=== PATIENT | female | born 1995 | race Caucasian/White ===

== ENCOUNTER → 2017-12-02 12:30 | Outpatient (RCR) | payer MEDICAID, SELFPAY ==
--- NOTE | 2013-08-30 15:00 | TODAY_ITS ---
To: PCP [facility] Reason for today's visit: [facility] ENR[facility] Plan: MET WITH OLIVER AND GOT HER ENROLLED IN [facility]. TALKED A LITTLE ABOUT WHATS GOING ON - SHE IS LIVING WITH HER SISTER CURRENTLY. WORKING WITH [employer] TO GET HER GED BUT MOST INTERESTED IN FINDING A JOB, LIKES MUSIC, DOESN'T ENJOYING WORKING WITH THE PUBLIC TOO MUCH, DID HAVE A JOB AT [facility] - NOT REALLY A POSSIBILITY OF GOING BACK THERE. Action Plan: Chronic Condition: Referred to:
--- NOTE | 2013-09-18 13:30 | TODAY_ITS ---
To: PCP [facility] Reason for today's visit: [facility] Plan: MET WITH OLIVER, SHE IS LIVING WITH HER SISTER AND HER SISTER'S FINANCE ON [employer]. RENT WAS DUE ON 09/02 BUT SHE DOESN'T HAVE ANY $$ OR A JOB. SHE HAS TAKEN HER GED TESTS AND PASSED 3 OUT OF 4, SHE STATES SHE IS REALLY BAD IN MATH. WE ARE GOING TO MEET ON TUESDAY TO GO OVER THE PRACTICE TEST AND SEE IF I CAN HELP HER WITH THE PROBLEMS. 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 SHE SAID I COULD CONTACT MONO TO SEE HOW I CAN HELp. I CONTACTED MONO AND SHE GOT HER PLACED AT THE [facility] MEAL SITE AND SHE IS LOOKING FOR SOMETHING MORE PERMINENT FOR HER. I SAID I WOULD FILL OUT THE [employer] APPLICATION WITH HER. Action Plan: Chronic Condition: Referred to:
--- NOTE | 2014-05-03 14:07 | TODAY_ITS ---
To: PCP Reason for today's visit: SPOKE WITH PT AT [facility] Plan: I SPOKE BREIFLY WITH PT ABOUT HOW SHE WAS DOING. STILL LOOKING FOR AN APARTMENT. i TOLD HER ABOUT ONE IN [facility]. SHE HAS AN INTERVIEW AT [facility] NEXT WEEK. SHE WILL GET IN TOUCH WITH ME SOON. Action Plan: I WILL TEXT PT TO SET UP AN APPOINTMENT. Chronic Condition: Referred to:
== END ==
LOC: COCO 08-30 15:00
PROVIDERS: PCP Nurse Practitioner Family; Visit Provider Nurse Practitioner Family
DX: 799.89 (principal)

== ENCOUNTER 2018-08-11 15:00 | Outpatient (REF) | payer MEDICAID, SELFPAY ==
[2018-08-11 19:02] LABS: Bilirubin Negative (Negative); Blood Trace-lysed (Negative); Clarity Clear; Glucose Negative (Negative); Ketones Negative (Negative); Leukocyte Esterase Small (Negative); Nitrite Negative (Negative); Specific Gravity 1.015 (1.005-1.025); Urobilinogen 0.2 EU/dL (Up TO 0.2)
[2018-08-11 19:11] LABS: Bacteria Few HPF (Negative); C & S Indicated? No/Sq. Contamination; Casts Negative LPF (Negative); Crystals Negative HPF (Negative); Epithelial Cells Moderate HPF (Negative); Mucus Trace (Negative); RBC 0-2 (0-2)
[2018-08-14 15:22] LABS: GC Result Negative
[2018-08-14 15:47] LABS: Chlamydia Result Positive
== END 2018-08-11 15:20 ==
LOC: NCHCN 15:00
PROVIDERS: PCP Nurse Practitioner Family; Visit Provider Nurse Practitioner Family
DX: N89.8 Other specified noninflammatory disorders of vagina (principal); R30.0 Dysuria; Z72.89 Other problems related to lifestyle; Z11.3 Encounter for screening for infections with a predominantly sexual mode of transmission
CPT/HCPCS: 87491; 87591; 81003; 81015; 87480; 87510; 87660

== ENCOUNTER 2018-09-04 15:23 | Outpatient (REF) | payer MEDICAID, SELFPAY ==
--- NOTE | 2018-09-04 14:45 | PAPFT_PTH ---
PATIENT: Carmel Yañez LOC: [facility] U#:[id number] AGE/SX: 22/F ROOM: RE09/04/[address]: Rhoda Lopez : 1995 BED: DIS: 09/04/2018 SPEC #: [id number] RECD: 09/04/18 18:09 STATUS: DARON REIrma #: [id number] TIANNA: 09/04/18 14:[address]: Rhoda Lopez DEPT: [facility] Cytology RECD BY: Holly Hernandes Tissues: 1 - CX/ENDOCX FOR PAP SMEARS Procedures: PAP THIN PREP/UVM Screening Comments: [id number]
[2018-09-06 15:03] LABS: Chlamydia Result Negative; GC Result Negative; Specimen Description CERVIX
== END 2018-09-04 15:43 ==
LOC: NCHCN 15:23
PROVIDERS: PCP Nurse Practitioner Family; Visit Provider Nurse Practitioner Family
DX: Z11.3 Encounter for screening for infections with a predominantly sexual mode of transmission (principal); Z72.89 Other problems related to lifestyle; Z12.4 Encounter for screening for malignant neoplasm of cervix; Z00.00 Encounter for general adult medical examination without abnormal findings
CPT/HCPCS: 87491; 87591; 88142; 87480; 87510; 87660

== ENCOUNTER 2020-07-10 17:03 | Outpatient (REF) | payer MEDICAID, SELFPAY ==
[2020-07-14 17:01] LABS: Chlamydia Result Negative (Negative); GC Result Negative (Negative)
== END 2020-07-10 17:04 | disposition home or self-care (01) ==
LOC: LBN 17:03
PROVIDERS: PCP Nurse Practitioner Family; Visit Provider Obstetrics & Gynecology Gynecology
DX: Z11.3 Encounter for screening for infections with a predominantly sexual mode of transmission (principal)
CPT/HCPCS: 87491; 87591

== ENCOUNTER 2020-12-12 18:24 | Emergency (ER) | payer MEDICAID, SELFPAY ==
[2020-12-12 18:29] VITALS: BP 119/74; PULSE 84; RESP 16; TEMP 36.3; O2SAT 97
--- NOTE | 2020-12-12 18:40 | ED.GENADUL_ITS ---
Discharge Plan Disposition Patient Disposition: HOME Condition: Stable Discharge Details Clinical Impression: Bartholin cyst Primary Care Provider: Rhoda Lopez ED Provider: Linda Alston Home Meds and New Rx's Prescriptions: New cephalexin 500 mg tablet 500 mg PO BID 7 Days Qty: 14 RF: 0 No Action Nexplanon 68 mg implant 1 implant subdermal ONCE RF: 0 ibuprofen 600 MG tablet 800 mg PO QID PRN PRNRF: 0 Discharge Instructions Instructions: Bartholin Cyst (ED), Incision and Drainage (ED) Additional Instructions: Please take the antibiotics as directed. Please follow-up with [facility] next week. You are placed on a care management list if you do not hear from anybody by Tuesday please call [facility] to follow-up. May continue to apply warm compresses. If the packing falls out before your appointment that is okay. Return to the ER for any worsening redness, worsening swelling, fever chills or any concerns. Please take Tylenol or Ibuprofen with food every 4-6 hours as needed for pain and swelling. Referrals: Shanelle Comer MD [ [facility] STAFF PHYSICIAN] - 5 days (Bartholin Cyst management) Rhoda Lopez [Primary Care Provider] - Discharge Data Discharge Date/Time-TO BE ENTERED AT DEPARTURE: 12/12/20 19:52 Medical Decision Making 1841??25-year-old female here with painful lump in the right groin progressively increasing in size over the past 4 to 5 days. She also had some nausea and vomiting today. Patient requesting female provider. I explained that we have a nurse practitioner here in the emergency department that could see her and she was appreciative of this. Care transition to ZOILA Alston with plan to complete exam and evaluation. Transition to ZOILA Alston. Please see separate document completed by ZOILA Alston from date of service. HPI General Mode of arrival: ambulatory . Date/Time Provider Initiated Documentation: 12/12/20 18:40 . Information obtained by: patient . HPI Narrative: 25-year-old female presents with chief complaint of lump. Patient notes lump in her right groin that started about 4 to 5 days ago. Initially was about a pea-sized and is grown to a gumball size. Lump is painful to the touch. Symptoms are moderate. No modifiers. She also notes some nausea and couple episodes of vomiting today. She is not sure if this is related. She denies associated fever or chills. No abdominal pain. No urinary symptoms. No abnormal discharge. Last menstrual period was 1 week ago. Related Data Home Medications Medication Instructions Recorded Confirmed etonogestrel 68 mg subdermal 1 implant SUBDERMAL ONCE 07/10/20 12/12/20 implant cephalexin 500 mg PO BID 7 Days #14 tab 12/12/20 ibuprofen 800 mg PO QID PRN PRN 12/12/20 12/12/20 Previous Rx's Medication Instructions Recorded cephalexin 500 mg PO BID 7 Days #14 tab 12/12/20 Allergies Allergy/AdvReac Type Severity Reaction Status Date / Time No Known Allergies Allergy Unverified 12/12/20 18:33 General Stated Complaint: Cellulitis JAYSON: 3 Review of Systems All systems reviewed & are unremarkable except as noted in HPI and below Constitutional Constitutional: Denies chills and Denies fever(s) Gastrointestinal Gastrointestinal: Reports as per HPI Genitourinary Genitourinary: Reports as per HPI [facility] Medical History Contraceptive management 05/01/14 Nexplanon device Depression Encounter for removal and reinsertion of Nexplanon Nexplanon in place 07/10/2020 Tobacco use Surgical History mouth surgery (~2012) pt did not specify nature of surgery. Family History Mother Mental disorder Father Mental disorder Sister Mental disorder Social History Smoking/Tobacco Use Status: Current every day Smoking risk assessment performed?: Yes Alcohol Intake: current Alcohol Intake frequency: a few times a week Drug use: Never Substance use type: does not use Do you feel safe at home: Yes Do you feel safe in your relationship?: Yes Course Vital Signs Vital signs: Vital Signs Temperature 36.3 C L 12/12/20 18:29 Pulse 84 12/12/20 18:29 Respiratory Rate 16 12/12/20 18:29 Blood Pressure 119/74 12/12/20 18:29 Pulse Oximetry 97 12/12/20 18:29 Temperature 36.3 C L 12/12/20 18:29 Temperature Source Skin 12/12/20 18:29 Pulse 84 12/12/20 18:29 Respiratory Rate 16 12/12/20 18:29 Respiratory Effort 12/12/20 18:36 Blood Pressure 119/74 12/12/20 18:29 Pulse Oximetry 97 12/12/20 18:29 Oxygen Delivery Method Room Air 12/12/20 18:29 Oxygen Flow Rate 0 12/12/20 18:29 Pain Level 9 12/12/20 18:29 Comment 12/12/20 18:29
--- NOTE | 2020-12-12 18:46 | W.ED.PROC ---
Date of service: 12/12/20 Time of Service: 18:46 Procedures Abscess I/D Site: Bartholin's Gland Side (if applicable): Right Sedation/analgesia: None Local Anesthetic: Lidocaine 1% Amount of anesthesia used (mL): 4 Technique: Incised with #11 Blade Amount of fluid expressed (mL): 10 Irrigation: No Packing used?: Plain Complications: Pain Narrative Narrative Narrative: Genitourinary exam completed at the request of ER attending Dr. Cox. Patient has a approximately 2 cm x 2 cm Bartholin cyst to her right external labia at approximately 7:00. She reports that she noticed this for 5 days ago. Has been applying warm compresses to the area with little to no relief. She has had an abscess to her buttock which was similar to this in the past. Area was prepped with Betadine and alcohol swab, anesthetized with 1% lidocaine and Novocain spray. Abscess was incised with an 11 blade. Purulent bloody drainage was stressed. Please see procedure note. Patient tolerated with some difficulty. Quarter inch plain packing was placed. Abscess was similar in size procedure patient report relief of pressure. Recommendation given to have patient follow-up with wellness within the week for further evaluation.
[2020-12-12 19:43] VITALS: BP 116/58; PULSE 90; RESP 16; TEMP 36.6; O2SAT 97
[2020-12-12] MEDS: Cephalexin 500 MG CAP PO (19:43)
--- NOTE | 2020-12-12 19:43 | W.ED.GENAD ---
Discharge Plan Disposition Patient Disposition: HOME Condition: Stable Discharge Details Clinical Impression: Bartholin cyst Primary Care Provider: Rhoda Lopez ED Provider: Linda Alston Home Meds and New Rx's Prescriptions: New cephalexin 500 mg tablet 500 mg PO BID 7 Days Qty: 14 RF: 0 No Action Nexplanon 68 mg implant 1 implant subdermal ONCE RF: 0 ibuprofen 600 MG tablet 800 mg PO QID PRN PRNRF: 0 Discharge Instructions Instructions: Bartholin Cyst (ED), Incision and Drainage (ED) Additional Instructions: Please take the antibiotics as directed. Please follow-up with [facility] next week. You are placed on a care management list if you do not hear from anybody by Tuesday please call [facility] to follow-up. May continue to apply warm compresses. If the packing falls out before your appointment that is okay. Return to the ER for any worsening redness, worsening swelling, fever chills or any concerns. Please take Tylenol or Ibuprofen with food every 4-6 hours as needed for pain and swelling. Referrals: Shanelle Comer MD [ [facility] STAFF PHYSICIAN] - 5 days (Bartholin Cyst management) Rhoda Lopez [Primary Care Provider] - Discharge Data Discharge Date/Time-TO BE ENTERED AT DEPARTURE: 12/12/20 19:52 Medical Decision Making 25-year-old female presents to the ER chief complaint of abscess to her right groin which she noticed approximately 4 to 5 days ago. Associated with some nausea and vomiting x2 today. She reports having an abscess to her buttock approximately 1 month ago. She has been applying warm compresses and doing sitz bath. She has been taking ibuprofen with little to no relief. Please see separate procedure note regarding bartholin cyst I&D. Patient instructed to follow-up with [facility] [facility] for further management of the Bartholin cyst. Instructed on home care and strict return instructions, verbalized understanding. Small piece of quarter inch plain packing was placed, patient was given cephalexin here in the department and prescription for 500 mg p.o. twice daily x7 days. This text was generated using [employer] system, please disregard any oddities of phrase or misspellings. HPI General Mode of arrival: ambulatory. Date/Time Provider Initiated Documentation: 12/12/20 18:40. Information obtained by: patient. HPI Narrative: 25-year-old female presents to the ER chief complaint of abscess to her right groin which she noticed approximately 4 to 5 days ago. Associated with some nausea and vomiting x2 today. She reports having an abscess to her buttock approximately 1 month ago. She has been applying warm compresses and doing sitz bath. She has been taking ibuprofen with little to no relief. Related Data Home Medications Medication Instructions Recorded Confirmed etonogestrel 68 mg subdermal 1 implant SUBDERMAL ONCE 07/10/20 12/12/20 implant cephalexin 500 mg PO BID 7 Days #14 tab 12/12/20 ibuprofen 800 mg PO QID PRN PRN 12/12/20 12/12/20 Previous Rx's Medication Instructions Recorded cephalexin 500 mg PO BID 7 Days #14 tab 12/12/20 Allergies Allergy/AdvReac Type Severity Reaction Status Date / Time No Known Allergies Allergy Unverified 12/12/20 18:33 General Stated Complaint: Cellulitis JAYSON: 3 Review of Systems All systems reviewed & are unremarkable except as noted in HPI and below Genitourinary Genitourinary: Reports as per HPI, Denies abnormal vaginal bleeding, Denies hematuria, Denies dysuria, Denies vaginal discharge and Reports other (Cyst/abscess to right labia) [facility] Medical History Contraceptive management 05/01/14 Nexplanon device Depression Encounter for removal and reinsertion of Nexplanon Nexplanon in place 07/10/2020 Tobacco use Surgical History mouth surgery (~2012) pt did not specify nature of surgery. Family History Mother Mental disorder Father Mental disorder Sister Mental disorder Social History Smoking/Tobacco Use Status: Current every day Smoking risk assessment performed?: Yes Alcohol Intake: current Alcohol Intake frequency: a few times a week Drug use: Never Substance use type: does not use Do you feel safe at home: Yes Do you feel safe in your relationship?: Yes Exam Narrative Exam Narrative: Constitutional: Alert and oriented x3. Appears stated age. Normal body habitus. Head: Normocephalic, no trauma. Eyes: Pupils PERRLA, Red reflex noted, EOM's intact. Eyelids symmetrical without lesions, discharge, or swelling. ENT: Bilateral TM's WNL, External ear normal to inspection, no mastoid TTP, swelling, or erythema, Nasal turbinates WNL, no nasal discharge. Normal dentition, Posterior pharynx WNL, no exudate. Chest: RRR, Normal S1, S2, distal pulses intact. Resp: Lungs clear to auscultation bilaterally, no wheezes, rales, or rhonchi. Musculoskeletal: Normal gait, 5/5 strength to all four extremities. Skin: Capillary refill less than 2 sec. Neurologic: Cranial nerves II-XII intact. Alert and oriented x 3. DTR's intact. Hematologic/Lymphatic: No ecchymosis, no lymphadenopathy. External Female Exam: erythema, externally tender and Bartholin cyst Female genitals images: 1. Approximately 2 cm x 2 cm abscess, tender to palpation central area of fluctuance noted. Presumed Bartholin cyst. Course Vital Signs Vital signs: Vital Signs Temperature 36.3 C L 12/12/20 18:29 Pulse 84 12/12/20 18:29 Respiratory Rate 16 12/12/20 18:29 Blood Pressure 119/74 12/12/20 18:29 Pulse Oximetry 97 12/12/20 18:29 Temperature 36.3 C L 12/12/20 18:29 Temperature Source Skin 12/12/20 18:29 Pulse 84 12/12/20 18:29 Respiratory Rate 16 12/12/20 18:29 Respiratory Effort 12/12/20 18:36 Blood Pressure 119/74 12/12/20 18:29 Pulse Oximetry 97 12/12/20 18:29 Oxygen Delivery Method Room Air 12/12/20 18:29 Oxygen Flow Rate 0 12/12/20 18:29 Pain Level 9 12/12/20 18:29 Comment 12/12/20 18:29
--- NOTE | 2020-12-12 23:07 | NUR.NOTE ---
referral faxed to [facility] to f/u in a week for Barthalon Cyst.Nursing Note:
== END 2020-12-12 19:52 | disposition home or self-care (01) ==
PROVIDERS: Emergency Provider Registered Nurse Emergency; PCP Nurse Practitioner Family
DX: N75.0 Cyst of Bartholin's gland (principal); R11.2 Nausea with vomiting, unspecified
CPT/HCPCS: 56420

== ENCOUNTER 2021-02-25 13:50 | Emergency (ER) | payer MEDICAID, SELFPAY ==
[2021-02-25 13:57] VITALS: BP 135/69; PULSE 88; RESP 18; TEMP 36.7; O2SAT 98
--- NOTE | 2021-02-25 15:29 | W.ED.GENAD ---
Discharge Plan Disposition Patient Disposition: HOME Condition: Stable Discharge Details Clinical Impression: Back pain Primary Care Provider: Rhoda Lopez ED Provider: Matt Dias Home Meds and New Rx's Prescriptions: Continued Nexplanon 68 mg implant 1 implant subdermal ONCE RF: 0 ibuprofen 600 MG tablet 800 mg PO QID PRN PRNRF: 0 Discharge Instructions Instructions: Back Pain (ED) Additional Instructions: Nbly-zhe-rshldoy Tylenol and/or Motrin as directed for discomfort. Gentle stretching as tolerated. Cool and/or warm compresses every 2 hours for 20 minutes. Please watch for new or worsening symptoms and return to the ER for any concerns. Lastly, if symptoms are to persist I recommend following up with your primary care provider, you may want to discuss physical therapy. Discharge Data Discharge Date/Time-TO BE ENTERED AT DEPARTURE: 02/25/21 16:21 Medical Decision Making 25-year-old female presents with right lower back discomfort of the past 24-36 hours, worse with movement, no obvious trauma but does do heavy lifting, turning, bending, etc. at work. She has taken [id number] Motrin with minimal relief. Neuro, vascular, tendon intact. No radiculopathy. Patient denies any IV drug use. She appears well, neurologically intact. She has no urinary symptoms. Will obtain urinalysis and POC . If negative will provide 60 IM Toradol negative. Urine dip revealed small blood, urinalysis negative for blood, 3-5 white cells, no culture indicated. Clinically patient does not appear to present consistent with renal stone. Will treat as musculoskeletal. 60 IM Toradol given. Standard discharge and return precautions provided. Patient has no additional questions or concerns and is comfortable discharge. This documentation was generated using [employer] system, please disregard any oddities of phrase or misspellings. Medical Records Medical records reviewed: Yes I reviewed the patient's medical records. Lab Data Lab results reviewed: Yes I reviewed the patient's lab results. Labs: Laboratory Tests Range/Units 02/25/21 15:30 Urine Color (Yellow) Yellow Urine Clarity (Clear) Clear Urine pH (5-8) 5.5 Ur Specific [place] (1.005-1.025) 1.020 Urine Protein (Negative) mg/dL Negative Urine Ketones (Negative) mg/dL Negative Urine Blood (Negative) Small H Urine Nitrite (Negative) Negative Urine Bilirubin (Negative) Negative Urine Urobilinogen (Up TO 0.2) EU/dL 0.2 Ur Leukocyte Esterase (Negative) Negative Urine RBC (0-2) HPF Negative Urine WBC (0-5) HPF 3-5 Ur Epithelial Cells (Negative) HPF Negative Urine Crystals (Negative) HPF Negative Urine Bacteria (Negative) HPF Negative Urine Casts (Negative) LPF Negative Urine Mucus (Negative) Negative Urine Other (Negative) Negative Ur Culture Indicated? No Urine Glucose (Negative) mg/dL Negative HPI General Mode of arrival: ambulatory. Date/Time Provider Initiated Documentation: 02/25/21 14:01. Limitations to Documentation: no limitations. Information obtained by: patient. HPI Narrative: This is a 25-year-old female, denies significant past medical history, presents reporting right-sided lower back pain into her buttocks that began sometime yesterday morning, worsened throughout the day, worse upon waking today. Patient states that the day before she was working, turning, lifting, bending but denies any obvious trauma. Has taken deup-ezm-bemidek ibuprofen with minimal relief. Denies any fever, abdominal pain, nausea, vomiting, IV drug use, dysuria, hematuria, diarrhea or constipation. Denies any numbness, tingling, weakness or radiation of pain down her leg. Patient works on Tuesday and wonders if she will feel well enough to work. Related Data Home Medications Medication Instructions Recorded Confirmed etonogestrel 68 mg subdermal 1 implant SUBDERMAL ONCE 07/10/20 02/25/21 implant ibuprofen 800 mg PO QID PRN PRN 12/12/20 02/25/21 Allergies Allergy/AdvReac Type Severity Reaction Status Date / Time No Known Allergies Allergy Unverified 02/25/21 14:00 General Stated Complaint: Nk/Back Pain JAYSON: 3 Review of Systems Constitutional Constitutional: Denies fever(s) and Denies weakness Gastrointestinal Gastrointestinal: Denies abdominal pain, Denies nausea and Denies vomiting Genitourinary Genitourinary: Denies abnormal vaginal bleeding, Denies hematuria, Denies dysuria and Denies vaginal discharge Musculoskeletal Musculoskeletal: Reports back pain, Denies numbness, Reports stiffness and Denies tingling Integumentary/Breasts Skin/Breast: Denies rash Neurologic Neurologic: Denies numbness, Denies tingling and Denies weakness [facility] Active Problem List Bartholin cyst (Acute) Back pain (Acute) Nexplanon in place (Acute) Encounter for removal and reinsertion of Nexplanon (Acute) Routine screening for STI (sexually transmitted infection) (Acute) Medical History Contraceptive management 05/01/14 Nexplanon device Depression Tobacco use Surgical History mouth surgery (~2012) pt did not specify nature of surgery. Family History Mother Mental disorder Father Mental disorder Sister Mental disorder Social History Smoking/Tobacco Use Status: Current every day Smoking risk assessment performed?: Yes Alcohol Intake: current Alcohol Intake frequency: 3 or more drinks per day Drug use: Daily Substance use type: marijuana Do you feel safe at home: Yes Do you feel safe in your relationship?: Yes Exam Const General: cooperative, healthy appearing, comfortable and no acute distress Orientation: alert and awake HENMT Head: normal to inspection, normocephalic and atraumatic Eyes Conjunctivae: conjunctivae normal Neck Neck: normal visual inspection, trachea midline and supple Resp Effort & Inspection: normal respiratory effort and able to speak in complete sentences Auscultation: clear to auscultation bilaterally Cardio Rate: regular rate Rhythm: regular rhythm GI Palpation: soft, not firm, no guarding, no pulsatile masses and nontender Back/Spine/Pelvis Back: no CVA tenderness and back tenderness Other: Diffuse mild lower right lumbar discomfort, worse over the SI region. No midline or bony point tenderness. No erythema, warmth or spasm. Left side negative straight leg raise. Right side positive at 10 degrees Skin General skin exam: no rashes or lesions noted Neuro General: patient alert, patient awake, moves all extremities and no focal motor deficits Cognition: normal cognition Speech: speech normal Gait: normal gait Motor: muscle tone normal throughout Sensory Exam: no sensory deficits noted Extrem General: normal to inspection, full ROM and capillary refill normal Psych Appearance: grossly normal Mental Status: mental status grossly normal Course Vital Signs Vital signs: Vital Signs Temperature 36.7 C 02/25/21 13:57 Pulse 88 02/25/21 13:57 Respiratory Rate 18 02/25/21 13:57 Blood Pressure 135/69 02/25/21 13:57 Pulse Oximetry 98 02/25/21 13:57 Temperature 36.7 C 02/25/21 13:57 Pulse 88 02/25/21 13:57 Respiratory Rate 18 02/25/21 13:57 Respiratory Effort Non-Labored 02/25/21 14:00 Blood Pressure 135/69 02/25/21 13:57 Pulse Oximetry 98 02/25/21 13:57 Pain Level 9 02/25/21 14:00 PAWSS Have you Been Recently Intoxicated or Drunk Within the Last 30 days?: Yes Have you Ever Experienced Previous Episodes of Alcohol Withdrawal?: No Have you ever Experienced Withdrawal Seizures?: No Have you ever Experienced Delirium Tremens(DT)s?: No Have you ever undergone Alcohol Rehabilitation Treatment (i.e, inpt ot outpatient treatment programs)?: Yes Have you ever Experienced Blackouts?: No Have you ever Combined Alcohol with other Downers within the last 90 days?: No Have you ever Combined Alcohol with any other Substance of Abuse during the last 90 days?: Yes Positive Blood Alcohol level on Presentation? [PCS.BAL]: No Evidence of Increased Autonomic Activity (i.e. HR>120, tremor, sweating, agitation, nausea)?: No Result: 4
[2021-02-25 15:51] LABS: Bilirubin Negative (Negative); Blood Small (Negative); Clarity Clear (Clear); Glucose Negative (Negative); Ketones Negative (Negative); Leukocyte Esterase Negative (Negative); Nitrite Negative (Negative); Urobilinogen 0.2 EU/dL (Up TO 0.2); pH 5.5 (5-8)
[2021-02-25 16:14] LABS: Bacteria Negative HPF (Negative); C & S Indicated? No; Casts Negative LPF (Negative); Crystals Negative HPF (Negative); Epithelial Cells Negative HPF (Negative); Mucus Negative (Negative); Other Cells Negative (Negative); RBC Negative HPF (0-2)
[2021-02-25] MEDS: Ketorolac 60 MG/2 ML VIAL IM (16:18)
== END 2021-02-25 16:21 | disposition home or self-care (01) ==
PROVIDERS: Emergency Provider Physician Assistant; PCP Nurse Practitioner Family
DX: M54.50 Low back pain, unspecified (principal)
CPT/HCPCS: 81025; 96372; 99284; 81003; 81015; 99283; J1885

== ENCOUNTER 2021-03-01 19:11 | Emergency (ER) | payer MEDICAID, SELFPAY ==
[2021-03-01 19:15] VITALS: BP 130/81; PULSE 93; RESP 18; TEMP 36.5; O2SAT 96
[2021-03-01] MEDS: Lidocaine 5% Patch 2 PATCH TP (20:41)
--- NOTE | 2021-03-01 20:44 | ED.GENADUL_ITS ---
Discharge Plan Disposition Patient Disposition: HOME Condition: Good Discharge Details Clinical Impression: Lumbar strain Primary Care Provider: Rhoda Lopez ED Provider: Holly Amos Home Meds and New Rx's Prescriptions: New lidocaine [Lidoderm] 5 % adhesive patch,medicated 1 patch topical DAILY Qty: 15 RF: 0 Continued Nexplanon 68 mg implant 1 implant subdermal ONCE RF: 0 ibuprofen 600 MG tablet 800 mg PO QID PRN PRNRF: 0 Discharge Instructions Instructions: Low Back Strain (ED) Additional Instructions: Lidoderm patches, 1-2 patches 12 hours on, 12 hours off Take ibuprofen 600 mg every 8 hours as needed Take Tylenol 650 mg every 4-6 hours for the next 5 days No heavy lifting or repetitive motion Follow-up with your primary care physician Stand Alone Forms: Work Release Referrals: Rhoda Lopez [Primary Care Provider] - Medical Decision Making Denies chance of , nonfocal neurological exam Bree steady gait, no evidence of cauda equina syndrome No evidence of lumbar radiculopathy, suspect piriformis No abdominal tenderness, no CVA tenderness, denies any dysuria or frequency Unfortunately secondary to the amount of alcohol patient consumes on a daily basis, between 8-12 hard cheeses, I do not feel comfortable prescribing patient for muscle relaxants I have given her Lidoderm patches and she will take Motrin and Tylenol for the next several days She is her primary care physician, I did discuss need for decreasing her alcohol consumption and risk of harm associated with drinking this amount She is alert, oriented, of decisional capacity, she is very pleasant in demeanor Medical Records Medical records reviewed: Yes I reviewed the patient's medical records. Lab Data Lab results reviewed: Yes I reviewed the patient's lab results. HPI General Mode of arrival: ambulatory . Date/Time Provider Initiated Documentation: 03/01/21 19:14 . Limitations to Documentation: no limitations . Information obtained by: patient . HPI Narrative: This 25-year-old female presents with lumbar pain. She states that a week ago at work she was lifting some heavy tables and thinks this precipitated her event. She denies any strength or sensation change. She denies any history of illicit drug use. She denies any radiation of pain down her extremities. Denies chance of . Denies any fever or chills. Describes the pain as sharp and positional. Worsened with flexion and extension she denies any changes in bowel or bladder. Related Data Home Medications Medication Instructions Recorded Confirmed etonogestrel 68 mg subdermal 1 implant SUBDERMAL ONCE 07/10/20 03/01/21 implant ibuprofen 800 mg PO QID PRN PRN 12/12/20 03/01/21 lidocaine [Lidoderm] 1 patch TOPICAL DAILY #15 ea 03/01/21 Previous Rx's Medication Instructions Recorded lidocaine [Lidoderm] 1 patch TOPICAL DAILY #15 ea 03/01/21 Allergies Allergy/AdvReac Type Severity Reaction Status Date / Time No Known Allergies Allergy Unverified 03/01/21 19:19 General Stated Complaint: Nk/Back Pain JAYSON: 4 Review of Systems All systems reviewed & are unremarkable except as noted in HPI and below PFSH Active Problem List Bartholin cyst (Acute) Back pain (Acute) Nexplanon in place (Acute) Encounter for removal and reinsertion of Nexplanon (Acute) Routine screening for STI (sexually transmitted infection) (Acute) Medical History Contraceptive management 05/01/14 Nexplanon device Depression Tobacco use Surgical History mouth surgery (~2012) pt did not specify nature of surgery. Family History Mother Mental disorder Father Mental disorder Sister Mental disorder Social History Smoking/Tobacco Use Status: Current every day Tobacco Type: cigarettes Smoking risk assessment performed?: Yes Alcohol Intake: current Alcohol Intake frequency: 3 or more drinks per day Drug use: Daily Substance use type: marijuana Do you feel safe at home: Yes Do you feel safe in your relationship?: Yes Exam Const General: cooperative, comfortable, no acute distress and well developed Eyes Pupils: PERRL Resp Effort & Inspection: normal respiratory effort Auscultation: clear to auscultation bilaterally Cardio Rate: regular rate GI Other: non-tender abdominal exam, no abdominal bruit or pulsatile mass, no CVA tenderness Back/Spine/Pelvis Back/spine/pelvis image: 1. tenderness to palpation no midline tenderness Skin General skin exam: no rashes or lesions noted Neuro General: patient alert and patient oriented x3 Extrem Other: Distal pulses intact Course Vital Signs Vital signs: Vital Signs Temperature 36.5 C 03/01/21 19:15 Pulse 93 H 03/01/21 19:15 Respiratory Rate 18 03/01/21 19:15 Blood Pressure 130/81 03/01/21 19:15 Pulse Oximetry 96 03/01/21 19:15 Temperature 36.5 C 03/01/21 19:15 Temperature Source Skin 03/01/21 19:15 Pulse 93 H 03/01/21 19:15 Respiratory Rate 18 03/01/21 19:15 Respiratory Effort Non-Labored 03/01/21 19:19 Blood Pressure 130/81 03/01/21 19:15 Pulse Oximetry 96 03/01/21 19:15 Pain Level 9 03/01/21 19:19 PAWSS Have you Been Recently Intoxicated or Drunk Within the Last 30 days?: Yes Have you Ever Experienced Previous Episodes of Alcohol Withdrawal?: No Have you ever Experienced Withdrawal Seizures?: No Have you ever Experienced Delirium Tremens(DT)s?: No Have you ever undergone Alcohol Rehabilitation Treatment (i.e, inpt ot outpatient treatment programs)?: No Have you ever Experienced Blackouts?: No Have you ever Combined Alcohol with other Downers within the last 90 days?: No Have you ever Combined Alcohol with any other Substance of Abuse during the last 90 days?: No Positive Blood Alcohol level on Presentation? [PCS.BAL]: No Evidence of Increased Autonomic Activity (i.e. HR>120, tremor, sweating, agitation, nausea)?: No Result: 1
== END 2021-03-01 20:44 | disposition home or self-care (01) ==
PROVIDERS: Emergency Provider Physician Assistant; PCP Nurse Practitioner Family
DX: S39.012A Strain of muscle, fascia and tendon of lower back, initial encounter (principal); X50.0XXA Overexertion from strenuous movement or load, initial encounter; Y99.0 Civilian activity done for income or pay
CPT/HCPCS: 99283

== ENCOUNTER 2021-10-29 16:23 | Emergency (ER) | payer MEDICAID, SELFPAY ==
[2021-10-29 16:27] VITALS: BP 122/79; PULSE 114; RESP 20; TEMP 37.3; O2SAT 96
--- NOTE | 2021-10-29 17:08 | ED.GENADUL_ITS ---
Discharge Plan Disposition Patient Disposition: HOME Condition: Stable Discharge Details Clinical Impression: Back pain Primary Care Provider: Rhoda Lopez ED Provider: Matt Dias Home Meds and New Rx's Prescriptions: New lidocaine [Lidoderm] 5 % adhesive patch,medicated 1 patch topical DAILY Qty: 15 0RF Rx Instructions: leave on most painful area for up to 12 hrs naproxen [Naprosyn] 500 mg tablet 500 mg PO BID PRNQty: 20 0RF Continued Nexplanon 68 mg implant 1 implant subdermal ONCE Rx Instructions: as a single dose Discontinued lidocaine [Lidoderm] 5 % adhesive patch,medicated 1 patch topical DAILY Qty: 15 0RF Rx Instructions: leave on most painful area for up to 12 hrs ibuprofen 600 MG tablet 800 mg PO QID PRN PRN Discharge Instructions Instructions: Back Pain (ED) Additional Instructions: Naprosyn and Lidoderm patches as directed. Gentle stretching as tolerated. [employer] and/or warm compresses every 2 hours for 20 minutes. Please watch for new or worsening symptoms and return to the ER for any concerns. Please practice proper lifting and body mechanics. We discussed physical therapy but at this time you do not feel as though you will be able to attend on a regular basis, I do feel is that this would be beneficial. 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 She states that the pain is becoming more frequent and worse with movement, occasionally traveling down her right leg. She denies any trauma, fever, history of IV drug use, abdominal pain, bowel or bladder incontinence or retention, numbness, tingling, weakness. Patient reports that Lidoderm patches do tend to help but she is out of them. She has not been followed by her primary care provider. We did discuss physical therapy but she does not believe this would be beneficial or useful at this time. She states I want to be sure there is nothing more going on. We discussed that this certainly seems musculoskeletal in nature. Obtaining urinalysis and test is reasonable but I do not believe any hematologic tests will be beneficial or change her outcome. Very little yield in obtaining plain film as there has been no trauma and I do not suspect bony abnormality. Patient is agreeable with this plan Urinalysis reveals no evidence of infection. Negative nitrate, negative leuk esterase, 0-2 red and white cells. Negative Discussed urinalysis with patient. Plan is to provide 60 IM Toradol. 60 IM Toradol provided, patient reports moderate relief She remains neurologically intact. No acute distress, ambulates without difficulty. We did discuss proper body mechanics for lifting and the importance of being proactive with chronic back pain at such a young age. Standard discharge and return precautions were provided. Patient understands, is agreeable to this plan, and has no additional questions or concerns upon discharge. This documentation was generated using FONU[employer]ation system, please disregard any oddities of phrase or misspellings. Medical Records Medical records reviewed: Yes I reviewed the patient's medical records. Lab Data Lab results reviewed: Yes I reviewed the patient's lab results. Labs: Laboratory Tests Range/Units 10/29/21 17:50 Urine Color (Yellow) Yellow Urine Clarity (Clear) Clear Urine pH (5-8) 5.5 Ur Specific [place] (1.005-1.025) >= 1.030 H Urine Protein (Negative) mg/dL Negative Urine Ketones (Negative) mg/dL 15 H Urine Blood (Negative) Small H Urine Nitrite (Negative) Negative Urine Bilirubin (Negative) Negative Urine Urobilinogen (Up TO 0.2) EU/dL 0.2 Ur Leukocyte Esterase (Negative) Negative Urine RBC (0-2) HPF 0-2 Urine WBC (0-5) HPF 0-2 Ur Epithelial Cells (Negative) HPF Moderate Urine Crystals (Negative) HPF Negative Urine Bacteria (Negative) HPF Negative Urine Mucus (Negative) Heavy Ur Culture Indicated? No Urine Glucose (Negative) mg/dL Negative HPI General Mode of arrival: ambulatory . Date/Time Provider Initiated Documentation: 10/29/21 16:24 . Limitations to Documentation: no limitations . Information obtained by: patient . History of Present Illness 26 year old F presents to the emergency department with the chief complaint of low back pain, described as moderate, with intensity rated at 6. Quality is described as aching, and is localized to the back. Patient extremity (R). Patient started experiencing this year(s) (1) and it has been intermittent. Immobilization improves symptom(s), Movement worsens symptoms . Patient notes no other symptoms.. Patient did receive the following treatments prior to arrival, other (Occasionally a Lidoderm patch) Related Data Home Medications Medication Instructions Recorded Confirmed etonogestrel 68 mg subdermal 1 implant subdermal ONCE 07/10/20 10/29/21 implant (Nexplanon) lidocaine 5 % topical patch 1 patch topical DAILY #15 ea 10/29/21 (Lidoderm) naproxen 500 mg tablet (Naprosyn) 500 mg PO BID PRN #20 tabs 10/29/21 Previous Rx's Medication Instructions Recorded lidocaine 5 % topical patch 1 patch topical DAILY #15 ea 10/29/21 (Lidoderm) naproxen 500 mg tablet (Naprosyn) 500 mg PO BID PRN #20 tabs 10/29/21 Allergies Allergy/AdvReac Type Severity Reaction Status Date / Time No Known Allergies Allergy Unverified 03/01/21 19:19 General Stated Complaint: Nk/Back Pain JAYSON: 4 Review of Systems Constitutional Constitutional: Denies fever(s) and Denies weakness Cardiovascular Cardiovascular: Denies chest pain and Denies dyspnea Respiratory Respiratory: Denies dyspnea Gastrointestinal Gastrointestinal: Denies abdominal pain, Denies nausea and Denies vomiting Genitourinary Genitourinary: Denies abnormal vaginal bleeding and Denies dysuria Musculoskeletal Musculoskeletal: Reports back pain, Denies numbness, Reports stiffness and Denies tingling Integumentary/Breasts Skin/Breast: Denies rash Neurologic Neurologic: Denies numbness, Denies tingling and Denies weakness PFSH All Active Problems (Updated 10/29/21 @ 18:26 by PATITO Torres) Bartholin cyst (Acute) Back pain (Acute) Lumbar strain (Acute) Nexplanon in place (Acute) 07/10/2020 Encounter for removal and reinsertion of Nexplanon (Acute) Routine screening for STI (sexually transmitted infection) (Acute) Medical History Contraceptive management 05/01/14 Nexplanon device Depression Tobacco use Surgical History mouth surgery (~2012) pt did not specify nature of surgery. Family History Mother Mental disorder Father Mental disorder Sister Mental disorder Social History Smoking/Tobacco Use Status: Current every day Tobacco Type: cigarettes Smoking risk assessment performed?: Yes Alcohol Intake: current Alcohol Intake frequency: holidays/special occasions only Drug use: Daily Substance use type: marijuana Do you feel safe at home: Yes Do you feel safe in your relationship?: Yes Exam Const General: cooperative, healthy appearing, comfortable and no acute distress Orientation: alert and awake HENMS Head: normal to inspection, normocephalic and atraumatic Eyes Conjunctivae: conjunctivae normal Neck Neck: normal visual inspection, full ROM, trachea midline and supple Resp Effort & Inspection: normal respiratory effort and able to speak in complete sentences Auscultation: clear to auscultation bilaterally Cardio Rate: regular rate Rhythm: regular rhythm GI Palpation: soft, not firm, no guarding, no pulsatile masses and nontender Back/Spine/Pelvis Back: no CVA tenderness and back tenderness (Diffuse mild right lumbar) Skin General skin exam: no rashes or lesions noted Neuro General: patient alert, patient awake, moves all extremities and no focal motor deficits Cognition: normal cognition Speech: speech normal Gait: normal gait Motor: muscle tone normal throughout Sensory Exam: no sensory deficits noted Extrem General: normal to inspection, full ROM, capillary refill normal, no pedal edema and no calf tenderness Psych Appearance: grossly normal Mental Status: mental status grossly normal Course Vital Signs Vital signs: Vital Signs Temperature 37.3 C 10/29/21 16:27 Pulse 114 H 10/29/21 16:27 Respiratory Rate 20 10/29/21 16:27 Blood Pressure 122/79 10/29/21 16:27 Pulse Oximetry 96 10/29/21 16:27 Temperature 37.3 C 10/29/21 16:27 Temperature Source Skin 10/29/21 16:27 Pulse 114 H 10/29/21 16:27 Respiratory Rate 20 10/29/21 16:27 Respiratory Effort Non-Labored 10/29/21 16:32 Blood Pressure 122/79 10/29/21 16:27 Blood Pressure Position Sitting 10/29/21 16:27 Pulse Oximetry 96 10/29/21 16:27 Oxygen Delivery Method Room Air 10/29/21 16:27 Oxygen Flow Rate 0 10/29/21 16:27 Pain Level 9 07/28/22 16:27
--- NOTE | 2021-10-29 17:23 | PDOC.ERCMPRO ---
- If Service Date Differs Date of service: 10/29/21 Time of Service: 17:23 Care Management Progress Note [facility]SB[facility] screen positive for cannabis (6) nicotine, Anxiety (REYNA 9) Depression(PHQ 9:16). Pt states she has been in tx in the past and is currently declining any tx services.
[2021-10-29 18:07] LABS: Bilirubin Negative (Negative); Blood Small (Negative); Clarity Clear (Clear); Glucose Negative (Negative); Ketones 15 mg/dL (Negative); Leukocyte Esterase Negative (Negative); Nitrite Negative (Negative); Specific Gravity >= 1.030 (1.005-1.025); Urobilinogen 0.2 EU/dL (Up TO 0.2); pH 5.5 (5-8)
[2021-10-29 18:19] LABS: Bacteria Negative HPF (Negative); C & S Indicated? No; Crystals Negative HPF (Negative); Epithelial Cells Moderate HPF (Negative); Mucus Heavy (Negative); RBC 0-2 HPF (0-2); WBC 0-2 HPF (0-5)
[2021-10-29] MEDS: Ketorolac 60 MG/2 ML VIAL IM (18:30)
[2021-10-29 18:41] VITALS: BP 108/92; PULSE 85; RESP 17; TEMP 37.6; O2SAT 98
== END 2021-10-29 18:43 | disposition home or self-care (01) ==
PROVIDERS: Emergency Provider Physician Assistant; PCP Nurse Practitioner Family
DX: M54.50 Low back pain, unspecified (principal); F17.210 Nicotine dependence, cigarettes, uncomplicated
CPT/HCPCS: 96372; 99284; 81003; 81015; J1885

== ENCOUNTER 2021-11-08 11:36 | Emergency (ER) | payer MEDICAID, SELFPAY ==
[2021-11-08 11:41] VITALS: PULSE 83; RESP 18; TEMP 36.6; O2SAT 98
--- NOTE | 2021-11-08 12:14 | W.ED.GENAD ---
Discharge Plan Disposition Patient Disposition: HOME Discharge Details Clinical Impression: Lumbar strain, Back pain Primary Care Provider: Rhoda Lopez ED Provider: Naresh Panda Home Meds and New Rx's Prescriptions: New lidocaine 4 % adhesive patch,medicated 1 patch topical DAILY PRNQty: 10 0RF No Action Nexplanon 68 mg implant 1 implant subdermal ONCE Rx Instructions: as a single dose cyclobenzaprine 10 mg Tablet 10 mg lidocaine [Lidoderm] 5 % adhesive patch,medicated 1 patch topical DAILY Qty: 15 0RF Rx Instructions: leave on most painful area for up to 12 hrs naproxen [Naprosyn] 500 mg tablet 500 mg PO BID PRNQty: 20 0RF Discharge Instructions Additional Instructions: It is very important that you follow-up with physical therapy as instructed by your primary care provider. You may take Tylenol 650 mg every 6 hours for the pain. You may also take ibuprofen 400 mg every 8 hours for the pain. It is very important that you use lidocaine patches 12 hours a day. When the lidocaine patches are not on you may apply some warm compresses to the lower back. Do not apply any warm compresses or cool compresses when the lidocaine patches is on. Stand Alone Forms: Work Release Medical Decision Making Patient with mechanical back pain. She did ask if an MRI was indicated at this time. I do not believe that any imaging is required. I reemphasized the need for her to follow-up with physical therapy. I reemphasized the fact that she needs to be using lidocaine patches. She will be treated with dose of Toradol in the emergency department. And the lidocaine patch will be applied. HPI General Date/Time Provider Initiated Documentation: 11/08/21 12:14. HPI Narrative: 26-year-old presents to the emergency room for reevaluation of low back pain. She was seen in the emergency department on October 29 and diagnosed with a lumbar strain. She was sent home with anti-inflammatories. She follow-up with her primary care office and was placed on Flexeril. She was prescribed lidocaine patches which she stopped using in was referred to physical therapy. Unfortunately she did not go to physical therapy. She presented to the emergency room with persistent low back pain. Pain is worse with changes in position. She does not recall any trauma. No falls. No heavy lifting. She works at the [employer] and the heaviest thing she lifts over the mattress when she is putting the sheets on them. She has had no fevers no chills. No history of IVDA. No incontinence. No paresthesias. No radiation of pain down the legs. Related Data Home Medications Medication Instructions Recorded Confirmed etonogestrel 68 mg subdermal 1 implant subdermal ONCE 07/10/20 11/08/21 implant (Nexplanon) lidocaine 5 % topical patch 1 patch topical DAILY #15 ea 10/29/21 11/08/21 (Lidoderm) naproxen 500 mg tablet (Naprosyn) 500 mg PO BID PRN #20 tabs 10/29/21 11/08/21 cyclobenzaprine 10 mg tablet 10 mg 11/08/21 lidocaine 4 % topical patch 1 patch topical DAILY PRN #10 ea 11/08/21 Previous Rx's Medication Instructions Recorded lidocaine 5 % topical patch 1 patch topical DAILY #15 ea 10/29/21 (Lidoderm) naproxen 500 mg tablet (Naprosyn) 500 mg PO BID PRN #20 tabs 10/29/21 lidocaine 4 % topical patch 1 patch topical DAILY PRN #10 ea 11/08/21 Allergies Allergy/AdvReac Type Severity Reaction Status Date / Time No Known Allergies Allergy Unverified 03/01/21 19:19 General Stated Complaint: Nk/Back Pain JAYSON: 3 Review of Systems Narrative: Constitutional negative for fever chills negative for malaise and fatigue Respiratory no cough no shortness of breath. GI no abdominal pain no nausea vomiting normal MSK see HPI Skin negative Neuro see HPI Psych positive anxiety. Hematological not on blood thinner PFSH All Active Problems (Updated 11/08/21 @ 12:24 by Naresh Panda MD) Bartholin cyst (Acute) Back pain (Acute) Lumbar strain (Acute) Nexplanon in place (Acute) 07/10/2020 Encounter for removal and reinsertion of Nexplanon (Acute) Routine screening for STI (sexually transmitted infection) (Acute) Medical History Contraceptive management 05/01/14 Nexplanon device Depression Tobacco use Surgical History mouth surgery (~2012) pt did not specify nature of surgery. Family History Mother Mental disorder Father Mental disorder Sister Mental disorder Social History Smoking/Tobacco Use Status: Current every day Tobacco Type: cigarettes Smoking risk assessment performed?: Yes Alcohol Intake: current Alcohol Intake frequency: holidays/special occasions only Drug use: Daily Substance use type: marijuana Do you feel safe at home: Yes Do you feel safe in your relationship?: Yes Exam Narrative Exam Narrative: Awake alert [place] x3 calm no acute distress. The patient for the waiting room walked her to the triage room. Upon arriving to the triage room she slumped in actually somewhat jumped into the chair without any exacerbation of her back pain. Her gait was normal. PERRLA EOMI MMM Normal work of breathing Normal cap refill Spine. No midline tenderness other than some discomfort on the lower aspect 3 L4 area. SI joints normal. The skin is normal. Patient has decreased flexion of lower back secondary to the pain. Strength of lower extremities 5/5. Rectal exam deferred. Neuro grossly intact Course Vital Signs Vital signs: Vital Signs Temperature 36.6 C 11/08/21 11:41 Pulse 83 11/08/21 11:41 Respiratory Rate 18 11/08/21 11:41 Pulse Oximetry 98 11/08/21 11:41 Temperature 36.6 C 11/08/21 11:41 Temperature Source Temporal Artery Scan 11/08/21 11:41 Pulse 83 11/08/21 11:41 Respiratory Rate 18 11/08/21 11:41 Blood Pressure Position Sitting 11/08/21 11:41 Pulse Oximetry 98 11/08/21 11:41 Oxygen Delivery Method Room Air 11/08/21 11:41 Oxygen Flow Rate 0 11/08/21 11:41 Pain Level 8 11/08/21 11:41
== END 2021-11-08 12:56 | disposition home or self-care (01) ==
PROVIDERS: Emergency Provider Emergency Medicine; PCP Nurse Practitioner Family
DX: S39.012A Strain of muscle, fascia and tendon of lower back, initial encounter (principal); F17.210 Nicotine dependence, cigarettes, uncomplicated; X58.XXXA Exposure to other specified factors, initial encounter
CPT/HCPCS: 96372; 99284

== ENCOUNTER 2022-08-24 05:12 | Emergency (ER) | payer MEDICAID, SELFPAY ==
[2022-08-24 05:15] VITALS: BP 121/62; PULSE 114; RESP 22; TEMP 36.3; O2SAT 98
--- NOTE | 2022-08-24 05:21 | ED.GENADUL_ITS ---
Discharge Plan Disposition Patient Disposition: Home Condition: Good Discharge Details Chief Complaint: Sorethroat Clinical Impression: Laryngitis Primary Care Provider: Rhoda Lopez ED Provider: Noé Chandler Home Meds and New Rx's Prescriptions: No Action Nexplanon 68 mg implant 1 implant subdermal ONCE Rx Instructions: as a single dose cyclobenzaprine 10 mg Tablet 10 mg lidocaine 4 % adhesive patch,medicated 1 patch topical DAILY PRNQty: 10 0RF lidocaine [Lidoderm] 5 % adhesive patch,medicated 1 patch topical DAILY Qty: 15 0RF Rx Instructions: leave on most painful area for up to 12 hrs naproxen [Naprosyn] 500 mg tablet 500 mg PO BID PRNQty: 20 0RF Discharge Instructions Instructions: Laryngitis (ED) Additional Instructions: At this time your strep test is negative. Current physical exam findings show no other evidence of tonsillitis, mono, or other significant abnormality. I suspect your symptoms are being caused by a viral upper respiratory infection. Please take Tylenol and Motrin as needed for pain. You can take 1000 mg of Tylenol every 6 hours and 800 mg of Motrin every 6 hours as needed. If you notice any worsening of your symptoms, or any new symptoms such as new oral lesions, vomiting, diarrhea, fever, chills, shortness of breath, chest pain, numbness, weakness, or fainting , please return immediately to the emergency department for reevaluation. Please follow up with your primary care provider as soon as possible for reassessment and reevaluation. As always, it was a pleasure participating in your medical care today. Referrals: Rhoda Lopez [Primary Care Provider] - Medical Decision Making 26-year-old female presents today for evaluation of sore throat and fever. Patient states that she went to bed last night with a mild sore throat, and woke up this morning with a sore throat and fever. She states that it feels like sandpaper when she tries to swallow. She denies any vomiting or diarrhea. She denies any other sick contacts. She denies any abdominal pain. She denies any severe fatigue. She did take Tylenol prior to arrival. No other complaints at this time. No other modifying factors. Physical exam demonstrates well-appearing female, no meningeal signs. Mild cobblestoning and erythema in the posterior oropharynx. No evidence of peritonsillar abscess. No evidence of airway compromise. Symptoms appear consistent with mild laryngitis/pharyngitis. We will test for strep, give Toradol and viscous lidocaine. At this time no evidence of khrh-bacn-gor-mouth. Strep test is negative. Symptoms appear consistent with a mild viral upper respiratory infection causing her laryngitis. No current evidence of herpangina, hzlq-bdfd-lvh-mouth, or tonsillitis. Recommend continued NSAIDs at home. Discussed red flags for which to return. No signs of airway compromise whatsoever. I have extensively reviewed the treatment plan and discharge instructions with the patient and their family. I have addressed all patient concerns at this time. The patient and family was made aware of what symptoms to monitor for that would warrant a return to the emergency department. Discussed the plan with the patient and family, they demonstrate verbal understanding and agreement with our assessment and plan at this time. The documentation in this chart was dictated using [employer] dictation software. Please excuse any dictation errors. HPI General Date/Time Provider Initiated Documentation: 08/24/22 05:12 . HPI Narrative: 26-year-old female presents today for evaluation of sore throat and fever. Patient states that she went to bed last night with a mild sore throat, and woke up this morning with a sore throat and fever. She states that it feels like sandpaper when she tries to swallow. She denies any vomiting or diarrhea. She denies any other sick contacts. She denies any abdominal pain. She denies any severe fatigue. She did take Tylenol prior to arrival. No other complaints at this time. No other modifying factors. Related Data Home Medications Medication Instructions Recorded Confirmed etonogestrel 68 mg subdermal 1 implant subdermal ONCE 07/10/20 11/08/21 implant (Nexplanon) lidocaine 5 % topical patch 1 patch topical DAILY #15 ea 10/29/21 11/08/21 (Lidoderm) naproxen 500 mg tablet (Naprosyn) 500 mg PO BID PRN #20 tabs 10/29/21 11/08/21 cyclobenzaprine 10 mg tablet 10 mg 11/08/21 lidocaine 4 % topical patch 1 patch topical DAILY PRN #10 ea 11/08/21 Previous Rx's Medication Instructions Recorded lidocaine 5 % topical patch 1 patch topical DAILY #15 ea 10/29/21 (Lidoderm) naproxen 500 mg tablet (Naprosyn) 500 mg PO BID PRN #20 tabs 10/29/21 lidocaine 4 % topical patch 1 patch topical DAILY PRN #10 ea 11/08/21 Allergies Allergy/AdvReac Type Severity Reaction Status Date / Time No Known Allergies Allergy Unverified 03/01/21 19:19 General Stated Complaint: Sorethroat JAYSON: 4 Review of Systems All systems reviewed & are unremarkable except as noted in HPI and below PFSH All Active Problems (Updated 08/24/22 @ 05:34 by Noé Chandler DO) Bartholin cyst (Acute) Back pain (Acute) Lumbar strain (Acute) Laryngitis (Acute) Nexplanon in place (Acute) 07/10/2020 Encounter for removal and reinsertion of Nexplanon (Acute) Routine screening for STI (sexually transmitted infection) (Acute) Medical History Contraceptive management 05/01/14 Nexplanon device Depression Tobacco use Surgical History mouth surgery (~2012) pt did not specify nature of surgery. Family History Mother Mental disorder Father Mental disorder Sister Mental disorder Social History Smoking/Tobacco Use Status: Current every day Tobacco Type: cigarettes Smoking risk assessment performed?: Yes Alcohol Intake: current Alcohol Intake frequency: 3 or more drinks per day Alcohol type: hard liquor Drug use: Daily Substance use type: marijuana Do you feel safe at home: Yes Do you feel safe in your relationship?: Yes Exam Narrative Exam Narrative: 1.Const: Well-nourished, Well-developed, appearing stated age 2.Eyes: PERRL, no conjunctival injection, and symmetrical lids. 3.ENT: Atraumatic external nose and ears. Moist MM. Neck: Symmetric, trachea midline, No thyromegaly. Mild erythema in the posterior oropharynx. No vesicles or lesions. No enlargement of the tonsils. Mild cobblestoning in the posterior oropharynx. Patient demonstrates good movement of cervical neck. There is no nuchal rigidity, no nuchal tenderness. Patient is able to flex the neck without any difficulty or significant pain. Negative Kernig's and Brudzinski sign. Tympanic membranes are harper, pearly, and unremarkable. 4.CVS: +S1/S2, No murmurs or gallops. Peripheral pulses 2+ and equal in all extremities. Brisk capillary refill in all extremities. 5.RESP: Unlabored respiratory effort. Clear to auscultation bilaterally. No wheezes rales or rhonchi 6.GI: Soft, Nontender/Nondistended, No hepatosplenomegaly. No guarding or rebound. 7.MSK: Normocephalic/Atraumatic, Extremities w/o deformity or ttp No cyanosis or clubbing, Normal movement of all extremities 8.Skin: Warm, Dry. No rashes or lesions. 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 Sensation grossly intact, no focal neurologic deficits. 10.Psych: (AAO) x3. Appropriate mood and affect Course Vital Signs Vital signs: Vital Signs Temperature 36.3 C L 08/24/22 05:15 Pulse 114 H 08/24/22 05:15 Respiratory Rate 22 08/24/22 05:15 Blood Pressure 121/62 08/24/22 05:15 Pulse Oximetry 98 08/24/22 05:15 Temperature 36.3 C L 08/24/22 05:15 Temperature Source Temporal Artery Scan 08/24/22 05:15 Pulse 114 H 08/24/22 05:15 Respiratory Rate 22 08/24/22 05:15 Blood Pressure 121/62 08/24/22 05:15 Blood Pressure Position Sitting 08/24/22 05:15 Pulse Oximetry 98 08/24/22 05:15 Oxygen Delivery Method Room Air 08/24/22 05:15 Oxygen Flow Rate 0 08/24/22 05:15 Pain Level 10 08/24/22 05:15
[2022-08-24] MEDS: Ketorolac 30 MG/ML VIAL IM (05:26)
[2022-08-24] MEDS: Lidocaine 2% Viscous 15 ML CUP PO (05:27)
== END 2022-08-24 05:50 | disposition home or self-care (01) ==
LOC: ER 05:52
PROVIDERS: Emergency Provider Student in an Organized Health Care Education/Training Program; PCP Nurse Practitioner Family
DX: J04.0 Acute laryngitis (principal); R50.9 Fever, unspecified
CPT/HCPCS: 87880; 96372; 99284; 87081; 99283; J1885

== ENCOUNTER 2022-08-25 09:49 | Emergency (ER) | payer MEDICAID, SELFPAY ==
[2022-08-25 10:00] VITALS: BP 116/52; PULSE 102; RESP 14; TEMP 37.2; O2SAT 99
--- NOTE | 2022-08-25 11:44 | ED.GENADUL_ITS ---
Discharge Plan Disposition Patient Disposition: Home Discharge Details Clinical Impression: Acute sore throat Primary Care Provider: Rhoda Lopez ED Provider: Linda Alston Home Meds and New Rx's Prescriptions: New amoxicillin-pot clavulanate 875-125 mg tablet 1 tab PO BID 10 Days Qty: 20 0RF Rx Instructions: Take one tablet by mouth twice daily x 10 days No Action Nexplanon 68 mg implant 1 implant subdermal ONCE Rx Instructions: as a single dose cyclobenzaprine 10 mg Tablet 10 mg lidocaine 4 % adhesive patch,medicated 1 patch topical DAILY PRNQty: 10 0RF lidocaine [Lidoderm] 5 % adhesive patch,medicated 1 patch topical DAILY Qty: 15 0RF Rx Instructions: leave on most painful area for up to 12 hrs naproxen [Naprosyn] 500 mg tablet 500 mg PO BID PRNQty: 20 0RF Discharge Instructions Instructions: Pharyngitis (ED) Additional Instructions: Gargle with warm salt water up to 3 times daily. Please use the HurriCaine spray up to 3 times daily as needed. Take the antibiotic twice daily with yogurt or a probiotic for the next 10 days. Please take Tylenol or Ibuprofen with food every 4-6 hours as needed for pain and swelling. Follow up with primary care provider in 3-5 days. Return to ED sooner if any worsening or concerns. Increase oral fluids. Stand Alone Forms: Work Release Referrals: Rhoda Lopez [Primary Care Provider] - 3 days Medical Decision Making 26-year-old female presents to the ER with a chief complaint of sore throat. Patient was seen here for same yesterday was diagnosed with laryngitis was given Toradol and instructed on home care. Patient reports that she is taking Tylenol with little to no relief pain is gotten worse. She reports unable to eat or drink anything. On exam she does have a beefy red posterior oropharynx, no exudate visualized. She does have some anterior cervical lymphadenopathy. No evidence of peritonsillar abscess uvula is midline. No hot potato voice. She is slightly tachycardic here at 102. Dexamethasone p.o. ordered, ibuprofen and Augmentin. Instructed on salt water gargles 3 times daily she verbalizes understanding. Strep swab not redone however due to patient's continued pain and symptoms I will treat her for possible bacterial infection. This text was generated using [employer] system, please disregard any oddities of phrase or misspellings. Medical Records Medical records reviewed: Yes I reviewed the patient's medical records. Lab Data Lab results reviewed: Yes I reviewed the patient's lab results. HPI General Mode of arrival: ambulatory . Date/Time Provider Initiated Documentation: 08/25/22 10:07 . Limitations to Documentation: no limitations . Information obtained by: patient, RN notes reviewed and old records reviewed . HPI Narrative: 26-year-old female presents to the ER with a chief complaint of sore throat. Patient was seen here for same yesterday was diagnosed with laryngitis was given Toradol and instructed on home care. Patient reports that she is taking Tylenol with little to no relief pain is gotten worse. She reports unable to eat or drink anything. On exam she does have a beefy red posterior oropharynx, no exudate visualized. She does have some anterior cervical lymphadenopathy. No evidence of peritonsillar abscess uvula is midline. No hot potato voice. She is slightly tachycardic here at 102. Related Data Home Medications Medication Instructions Recorded Confirmed etonogestrel 68 mg subdermal 1 implant subdermal ONCE 07/10/20 11/08/21 implant (Nexplanon) lidocaine 5 % topical patch 1 patch topical DAILY #15 ea 10/29/21 11/08/21 (Lidoderm) naproxen 500 mg tablet (Naprosyn) 500 mg PO BID PRN #20 tabs 10/29/21 11/08/21 cyclobenzaprine 10 mg tablet 10 mg 11/08/21 lidocaine 4 % topical patch 1 patch topical DAILY PRN #10 ea 11/08/21 amoxicillin 875 mg-potassium 1 tab PO BID 10 days #20 tabs 08/25/22 clavulanate 125 mg tablet Previous Rx's Medication Instructions Recorded lidocaine 5 % topical patch 1 patch topical DAILY #15 ea 10/29/21 (Lidoderm) naproxen 500 mg tablet (Naprosyn) 500 mg PO BID PRN #20 tabs 10/29/21 lidocaine 4 % topical patch 1 patch topical DAILY PRN #10 ea 11/08/21 amoxicillin 875 mg-potassium 1 tab PO BID 10 days #20 tabs 08/25/22 clavulanate 125 mg tablet Allergies Allergy/AdvReac Type Severity Reaction Status Date / Time No Known Allergies Allergy Unverified 08/25/22 10:06 General Stated Complaint: Sorethroat JAYSON: 4 Review of Systems All systems reviewed & are unremarkable except as noted in HPI and below ENT Ears, Nose, Mouth, and Throat: Reports as per HPI, Reports dysphagia, Reports sore throat and Reports throat swelling Gastrointestinal Gastrointestinal: Reports dysphagia Allergic/Immunologic Allergic/Immunologic: Reports throat swelling PFSH All Active Problems (Updated 08/25/22 @ 11:49 by Linda Alston NP) Bartholin cyst (Acute) Back pain (Acute) Lumbar strain (Acute) Laryngitis (Acute) Acute sore throat (Acute) Nexplanon in place (Acute) 07/10/2020 Encounter for removal and reinsertion of Nexplanon (Acute) Routine screening for STI (sexually transmitted infection) (Acute) Medical History Contraceptive management 05/01/14 Nexplanon device Depression Tobacco use Surgical History mouth surgery (~2012) pt did not specify nature of surgery. Family History Mother Mental disorder Father Mental disorder Sister Mental disorder Social History Smoking/Tobacco Use Status: Current every day Tobacco Type: cigarettes Smoking risk assessment performed?: Yes Alcohol Intake: current Alcohol Intake frequency: 3 or more drinks per day Alcohol type: hard liquor Drug use: Daily Substance use type: marijuana Do you feel safe at home: Yes Do you feel safe in your relationship?: Yes Exam HENAR Head: normal to inspection General nose exam: external nose normal Mouth: oral mucosae normal, lip normal, tongue normal and moist mucous membranes Teeth and gingiva: dentition normal Throat: abnormal tonsil bilaterally hypertrophy 2+ and posterior oropharynx abnormal edema and erythema; no exudates Neck Neck: normal visual inspection and full ROM Lymphatic: lymphadenopathy Resp Effort & Inspection: normal respiratory effort and able to speak in complete sentences Auscultation: clear to auscultation bilaterally Cardio Rate: tachycardic Rhythm: regular rhythm Heart Sounds: S1 normal and S2 normal Course Vital Signs Vital signs: Vital Signs Temperature 37.2 C 08/25/22 10:00 Pulse 102 H 08/25/22 10:00 Respiratory Rate 14 08/25/22 10:00 Blood Pressure 116/52 L 08/25/22 10:00 Pulse Oximetry 99 08/25/22 10:00 Temperature 37.2 C 08/25/22 10:00 Temperature Source Skin 08/25/22 10:00 Pulse 102 H 08/25/22 10:00 Respiratory Rate 14 08/25/22 10:00 Blood Pressure 116/52 L 08/25/22 10:00 Blood Pressure Position Sitting 08/25/22 10:00 Pulse Oximetry 99 08/25/22 10:00 Oxygen Delivery Method Room Air 08/25/22 10:00 Oxygen Flow Rate 0 08/25/22 10:00 Pain Level 10 08/25/22 10:00
[2022-08-25] MEDS: Dexamethasone 10 MG/ML VIAL PO (11:56)
[2022-08-25] MEDS: Ibuprofen 600 MG TAB PO (11:56)
[2022-08-25] MEDS: Benzocaine 20% 60 ML CAN TP (11:57)
[2022-08-25] MEDS: Amoxicillin 875/Clav. 125 TAB PO (11:57)
== END 2022-08-25 12:07 | disposition home or self-care (01) ==
PROVIDERS: Emergency Provider Registered Nurse Emergency; PCP Nurse Practitioner Family
DX: J02.9 Acute pharyngitis, unspecified (principal); J04.0 Acute laryngitis
CPT/HCPCS: 99283; J1100

== ENCOUNTER 2023-04-26 13:12 | Outpatient (REF) | payer MEDICAID, SELFPAY ==
--- NOTE | 2023-04-26 11:50 | PAPFT_PTH ---
PATIENT: Carmel Yañez LOC: [facility] U#:[id number] AGE/SX: 27/F ROOM: RE04/26/[address]: CARMEL GERMAN : 1995 BED: DIS: 04/26/2023 SPEC #: [id number] RECD: 04/26/23 18:07 STATUS: DARON REIrma #: [id number] TIANNA: 04/26/23 11:[address]: Carmel German DEPT: [facility] Cytology RECD BY: Holly Hernandes Tissues: 1 - CX/ENDOCX FOR PAP SMEARS Procedures: PAP THIN PREP/[facility] Screening Comments: [id number] (CHLAMYDIA/GC)
[2023-04-26 23:25] LABS: HIV-1/2 Ag & Ab Screen Negative (Negative)
[2023-04-26 23:26] LABS: Hepatitis C Ab w Rflx HCV PCR Negative (Negative)
[2023-04-27 10:40] LABS: Syphilis Serology (RPR) Negative (Negative)
[2023-04-27 14:36] LABS: Chlamydia Result Negative (Negative); GC Result Negative (Negative)
== END 2023-04-26 13:13 | disposition home or self-care (01) ==
LOC: NCHCN 13:12
PROVIDERS: PCP Nurse Practitioner Family; Visit Provider Nurse Practitioner Family
DX: Z00.00 Encounter for general adult medical examination without abnormal findings (principal); Z12.4 Encounter for screening for malignant neoplasm of cervix; Z11.51 Encounter for screening for human papillomavirus (HPV)
CPT/HCPCS: 86803; 87389; 87491; 87591; 88142; 86592

== ENCOUNTER 2023-05-20 02:57 | Outpatient (CLI) | payer MEDICAID, SELFPAY ==
[2023-05-20] MEDS: Levalbuterol HFA 15 GM INH 4 PUFF IH (14:02)
[2023-05-20] MEDS: Inhaler, Assist Device 1 EACH MC (14:02)
--- NOTE | 2023-05-27 13:23 | PFT_ITS ---
Date of service: 05/20/23 Time of Service: 13:02 Pulmonary Function Test Result Indications: Dyspnea on exertion Interpretation Spirometry: There is mild airflow limitation. There is a significant bronchodilator r esponse. Lung Volumes: There is air trapping Diffusion Capacity: Normal diffusion Airway Pressure: Increased airways resistance Impression Mild airflow obstruction with a bronchodilator response. This can be consistent with chronic bronchitis (COPD), uncontrolled asthma, or asthma-COPD overlap syndrome. Clinical Correlation therefore is recommended.
== END 2023-05-20 02:58 | disposition home or self-care (01) ==
LOC: RT 02:57
PROVIDERS: PCP Nurse Practitioner Family; Visit Provider Nurse Practitioner Family
DX: R06.00 Dyspnea, unspecified (principal); J44.9 Chronic obstructive pulmonary disease, unspecified
CPT/HCPCS: 94060; 94726; 94729

== ENCOUNTER 2023-12-09 16:26 | Emergency (ER) | payer MEDICAID, SELFPAY ==
[2023-12-09 16:28] VITALS: BP 115/77; PULSE 123; RESP 16; TEMP 36.3; O2SAT 96
[2023-12-09 16:52] LABS: Bilirubin Negative (Negative); Blood Small (Negative); Clarity Clear (Clear); Glucose Negative (Negative); Ketones Trace mg/dL (Negative); Leukocyte Esterase Negative (Negative); Nitrite Negative (Negative); Urobilinogen 0.2 mg/dL (Up to 0.2)
[2023-12-09 16:57] LABS: Bacteria Rare HPF (Negative); C & S Indicated? No; Casts Negative LPF (Negative); Crystals Negative HPF (Negative); Epithelial Cells Rare HPF (Negative); Mucus Negative (Negative); RBC 0-2 HPF (0-2); WBC 0-2 HPF (0-5)
[2023-12-09 17:01] LABS: *AMPHETAMINES SCREEN URINE Negative (Negative); *BARBITURATES SCREEN URINE Negative (Negative); *BENZODIAZEPINES SCREEN URINE Negative (Negative); Cannabinoids THC Positive (Negative); Cocaine Screen,Urine Negative (Negative); METHADONE URINE SCREEN Negative (Negative); OPIATES URINE SCREEN Negative (Negative)
[2023-12-09 17:06] LABS: Tricyclic Antidepressants Negative (Negative)
--- OUTSIDE RECORDS SUMMARY | 2023-12-09 17:21 | XMS_ITS | Clinical Summary ---
Author Organization [facility] Address [address] [place] [address] Care Team Providers Care Diaper Machine Tender Name Role Phone Unknown, Provider Primary Care Provider Social History Tobacco Use Types Packs/Day Years Used Date Smoking Tobacco: Never Assessed Sex and Gender Information Value Date Recorded Sex Assigned at Not on file Gender Identity Not on file Sexual Orientation Not on file Plan of Treatment Health Maintenance Due Date Last Done Comments Hepatitis B Vaccine (1 of 3 - 19+ 3-dose series) 10/24 COVID-19 Vaccine ( season) 2022 Hepatitis C Screen Completed 04/26/2023 Procedures Procedure Name Priority Date/Time Associated Diagnosis Comments HEPATITIS C AB W REFLEX TO HCV RNA BY PCR Routine 04/26/2023 12:20 EST from Last 3 Months or Most Recently Relevant to Health Maintenance Results * HEPATITIS C AB W REFLEX TO HCV RNA BY PCR (04/26/2023 12:20 EST) Hep C Antibody Negative Negative 04/26/2023 23:21 EST [facility] Blood VENOUS BLOOD / Unknown 04/26/2023 12:20 EST 04/26/2023 21:26 EST Provider Outr Resulting Lab CHEMISTRY & BLOOD GAS ORDERABLES [facility] [address] [place] [address] from Last 3 Months or Most Recently Relevant to Health Maintenance Care Teams Diaper Machine Tender Relationship Specialty Start Date End Date Unknown, Provider, PCP - General 09/05/18
--- OUTSIDE RECORDS SUMMARY | 2023-12-09 17:21 | XMS_ITS | Encounter Summary ---
Author Organization [facility] Address [address] [place] [address] Care Team Providers Care Canary Raiser Name Role Phone Unknown, Provider Primary Care Provider Encounter Details Date Type Department Care Team (Late st Contact Info) Description 09/04/2018 Results Only [facility] [phone] Sushil Lopez, ANGELO [address] [place] [address] Social History Tobacco Use Types Packs/Day Years Used Date Smoking Tobacco: Never Assessed Sex and Gender Information Value Date Recorded Sex Assigned at Not on file Gender Identity Not on file Sexual Orientation Not on file documented as of this encounter Plan of Treatment Not on file documented as of this encounter Procedures Procedure Name Priority Date/Time Associated Diagnosis Comments PAP TEST- RESULT ONLY Routine 09/04/2018 0:00 EDT documented in this encounter Results * PAP TEST- RESULT ONLY (09/04/2018 0:00 EDT) Pathology Report: CYTOPATHOLOGY REPORT Reports generated via electronic interface contain original data; however they are lacking the format of the original report. Caution should be taken when reading/interpreti ng unformatted reports. Name: ? WALTER CARMEL Doe ? Accession #: ? [id number] : ? 1995 (Age: 22) ??F ?Collect Date: ? 09/04/2018 Location: ? [facility] ? Receive Date: ? 09/05/2018 Provider: ?SUSHIL LOPEZ ASSISTANT PRODUCER Copy to: ? Specimen/Source: ?Pap Test, Cervix, ThinPrep Imaging System with manual evaluation Last Menstrual Period: ? Hormonal/Contracep tive Status: ? Yes: Nexplanon Other: ? Additional clinical information: Z00.00 Z12.4 Z11.51 ? SPECIMEN ADEQUACY ? Satisfactory for Evaluation - transformation zone component present GENERAL CATEGORIZATION ? Negative for Intraepithelial Lesion or Malignancy ? Document reviewed and electronically signed by: ? MAY Santizo(ASCP) ? Report Date: ??09/07/2018 08:24 End of Report [facility] 09/04/2018 09/05/2018 Sushil [facility]PHENS PATHOLOGY ORDERABLES [facility] [address] [place] [address] documented in this encounter Visit Diagnoses Not on filedocumented in this encounter Care Teams Canary Raiser Relationship Specialty Start Date End Date Unknown, Provider, PCP - General 09/05/18 documented as of this encounter
--- OUTSIDE RECORDS SUMMARY | 2023-12-09 17:21 | XMS_ITS | Encounter Summary ---
Author Organization [facility] Address [address] [place] [address] Care Team Providers Care Nurse Emergency Room Name Role Phone Unknown, Provider Primary Care Provider Encounter Details Date Type Department Care Team (Late st Contact Info) Description 07/11/2020 Lab Requisition [facility] Pathology & Laboratory Medicine - [facility] [address] [place] [address] Outr Resulting Lab, Provider Social History Tobacco Use Types Packs/Day Years Used Date Smoking Tobacco: Never Assessed Sex and Gender Information Value Date Recorded Sex Assigned at Not on file Gender Identity Not on file Sexual Orientation Not on file documented as of this encounter Plan of Treatment Not on file documented as of this encounter Procedures Procedure Name Priority Date/Time Associated Diagnosis Comments CHLAMYDIA/N. GONORRHOEAE AMPLIFIED NUCLEIC ACID Routine 07/10/2020 16:00 EDT documented in this encounter Results * CHLAMYDIA/N. GONORRHOEAE AMPLIFIED RNA (07/10/2020 16:00 EDT) Neisseria gonorrhoeae Result Negative Negative 07/14/2020 16:57 EDT [facility] Chlamydia trachomatis Result Negative Negative 07/14/2020 16:57 EDT [facility] Swab ENTIRE ENDOCERVIX / Unknown 07/10/2020 16:00 EDT 07/11/2020 18:25 EDT Provider Outr Resulting Lab MICROBIOLOGY - GENERAL ORDERABLES [facility] [address] [place] [address] documented in this encounter Visit Diagnoses Not on filedocumented in this encounter Care Teams Nurse Emergency Room Relationship Specialty Start Date End Date Unknown, Provider, PCP - General 09/05/18 documented as of this encounter
--- OUTSIDE RECORDS SUMMARY | 2023-12-09 17:21 | XMS_ITS | Encounter Summary ---
Author Organization [facility] Address [address] [place] [address] Care Team Providers Care Welding Robot Operator Name Role Phone Unknown, Provider Primary Care Provider Encounter Details Date Type Department Care Team (Latest Contact Info) Description 04/27/2023 Lab Requisition [facility] Pathology & Laboratory Medicine - [facility] [address] [place] [address] Carmel German, ANGELO [address] [facility] [address] [place] [address] Encounter for screening for human papillomavirus (HPV); Encounter for screening for malignant neoplasm of cervix; Encounter for general adult medical examination without abnormal findings Social History Tobacco Use Types Packs/Day Years Used Date Smoking Tobacco: Never Assessed Sex and Gender Information Value Date Recorded Sex Assigned at Not on file Gender Identity Not on file Sexual Orientation Not on file documented as of this encounter Plan of Treatment Not on file documented as of this encounter Procedures Procedure Name Priority Date/Time Associated Diagnosis Comments PAP TEST Today 04/26/2023 11:50 EST Encounter for screening for human papillomavirus (HPV) Encounter for screening for malignant neoplasm of cervix Encounter for general adult medical examination without abnormal findings documented in this encounter Results * PAP TEST (04/26/2023 11:50 EST) Specimens A. Cervix and/or Endocervix , ThinPrep Imaging System with Manual Evaluation 05/10/2023 9:35 EST [facility] Specimen Adequacy Satisfactory for Evaluation - transformation zone component present 05/10/2023 9:35 EST [facility] General Categorization Negative for intraepithelial lesion or malignancy 05/10/2023 9:35 [facility] Attestation . 05/10/2023 9:35 [facility] at 0935 Clinical History SEE BELOW 05/10/19 9:35 [facility] Performing Lab [facility] 05/10/2023 9:35 EST [facility] Scanned Images 05/10/2023 9:35 [facility] Pap Test CERVIX UTERI STRUCTURE / Unknown 04/26/2023 11:50 EST 04/27/2023 15:27 EST Carmel German GARDENING MANAGER PATHOLOGY ORDERABLES Performing Organization Address City/State/[facility] Co de Phone Number [facility] [address] [phone] documented in this encounter Visit Diagnoses Diagnosis Encounter for screening for human papillomavirus (HPV) Special screening examination for human papillomavirus (HPV) Encounter for screening for malignant neoplasm of cervix Screening for malignant neoplasm of the cervix Encounter for general adult medical examination without abnormal findings Unspecified general medical examination documented in this encounter Care Teams Welding Robot Operator Relationship Specialty Start Date End Date Unknown, Provider, PCP - General 09/05/18 documented as of this encounter
--- OUTSIDE RECORDS SUMMARY | 2023-12-09 17:21 | XMS_ITS | Data Portability ---
Author Organization [facility], [facility] Address [address] [place] [address] Assessment No assessment recorded. Plan of Treatment Reminders Order Date Submit Date Provider Last Modified By Organization Details Last Modified Time Details Appointments Follow Up 2023 10:00A M Not available Not available Not available Follow Up 2023 02:00P M Not available Not available Not available Lab test, urine 2023 024 [email or web address] [facility], [address], [place], [address], 04/26/2023 12:49:39 pap, LB 2023 0[email or web address] [address] [place] [address] [place], [address], 05/17/2023 09:08:41 HIV (1+2) Ab screen, serum - 2 tigers, 1 SST obtained from () without issue 2023 024 [facility] (Registration ), [address] [place] [address] [place], [address], 05/03/2023 11:49:31 hepatitis C virus Ab, serum - 2 tigers, 1 SST obtained from () without issue 2023 024 [facility] (Registration ), [address] [place] [address] [place], [address], 05/03/2023 11:49:31 RPR (rapid plasma reagin), serum - 2 tigers, 1 SST obtained from (R) AC without issue 2023 [facility] (Registration ), [address] [place] [address] Dr, [place], [address], 05/03/2023 11:49:31 Referral psychiatr ist referral 2023 024 [facility], [address], [place], [address], 12/03/2023 04:05:46 Procedures None recorded. Surgeries None recorded. Imaging None recorded. Medication Orders albuterol sulfate HFA 90 mcg/actua tion aerosol inhaler 2023 024 [id number] [facility], [address] [place] [address], [id number], 04/26/2023 12:49:39 Advair HFA 115 mcg-21 mcg/actua tion aerosol inhaler 2023 024 MAZIN [facility], [address] [place], [address], 07/26/2023 10:50:43 mirtazapi ne 7.5 mg tablet 2023 024 [facility], [address] [place] [address], [id number], 11/24/2023 16:04:45 mirtazapi ne 15 mg tablet 2023 024 MAZIN [facility], [address] [place], [address], 11/24/2023 16:04:54 Patient TargetsNo targets recorded. Patient Instructions Encounter Date Encounter Id Patient Instructions Last Modified By Organization Details Last Modified Time 04/26/2023 [id number] complete PFT w/ post bronchodilator spirometry* [id number] Not available 05/25/2023 09:01:59 Nice to see you today Carmel! Pap test completed and we will let you know results by phone if abnormal and by portal or letter if normal. STD screening today with labs as well as gonorrhea chlamydia screening and hCG screening on urine and Pap. Negative hCG test today. continue with use of nexplanon for control we will get update From women's wellness about when you are due for your next Nexplanon for mood/anxiety/ace discussed I can re-refer you to psychiatric nurse practitioner here or we can discuss at our next office visit. I know you are hesitant to establish with new provider for this but may be will have a better fit with someone else. Think about it and let me know. Otherwise I will see you in 3 months for discussion. Not available 04/26/2023 12:41:32 07/26/2023 [id number] Nice to see you today Carmel! restart mirtazipine 7.5mg nightly for insomnia. let me know if not helpful after 2 weeks. sooner if concerns. start Advair HFA 115mcg dosing inhaler 1 puff twice daily for asthma/copd. rinse mouth out after use [email or web address] Not available 07/26/2023 10:57:47 Reason for Referral Psychiatrist Referral for Po sttraumatic stress disorder ptsd, anxiety, depression, nightmares/terrors, alcohol abuse- wants a psych eval. failed on many med Referring Physician: Carmel German, Family Medicine, Encounter Date: 10/26/2023 Results Created Date Observation Date Name Description Value Unit Range Abnormal Flag Note LastModifiedBy Organization Detail LastModifiedTime 04/26/19 24 04/26/2023 HIV-1 /2 AG AB SCREE N HIV-1/2 Ag Ab screen Negati ve negati ve If acute HIV-1 infec tion is suspe cted in a high risk patie nt, submi t plasm a speci men for HIV-1 RNA quant itati on test. Fourt h Gener ation assay perfo rmed on the [employer] [facility]. Test perfo rmed or refer red by [facility] [address], [place] [address] Not Available [address] [place], [address] 04/27/2023 14:11:53 04/26/19 24 04/26/2023 HEPAT ITIS C AB W RFLX HCV PCR hepatitis C Ab W rflx HCV PCR Negati ve negati ve Test perfo rmed or refer red by [facility] [address], [place] [address] Not Available [address] [place], [address] 04/27/2023 14:13:59 04/26/19 24 04/27/2023 SYPHI LIS SEROL OGY (RPR) syphilis serology (RPR) Negati ve negati ve Test perfo rmed or refer red by [facility] [address], [place] [address] Not Available [address] [place], [address] 04/27/2023 14:14:00 04/26/19 24 04/27/2023 CHLAM YDIA/ GC THIN PREP chlamydia result Negati ve negati ve Not Available [address] [place], [address] 04/27/2023 15:56:08 04/26/19 24 04/27/2023 CHLAM YDIA/ GC THIN PREP GC result Negati ve negati ve Test perfo rmed or refer red by [facility] [address], [place] [address] Not Available [address] [place], [address] 04/27/2023 15:56:08 04/26/19 24 04/26/2023 pregn carmela test, urine HCG negati ve Not Available [facility] [address], [place], [address], 04/26/2023 11:46:07 05/27/19 24 05/27/2023 PFT, compl ete Pulmon charisma Functi on Test PATIEN T NAME: Carmel Yañez UNIT #: [id number] ADMITT ING PROVID ER: Ольга Ye M.D. ACCOUN T #: [id number] PRIMAR Y CARE PROVID ER: Carmel German DATE OF ADMIT: 05/20 : 1995 Date of servic e: Time of Servic e: 13:02 Pulmon charisma Functi on Test Result Indica tions: Dyspne a on exerti on Interp retati on Spirom etry: There is mild airflo w limita tion. There is a signif icant bronch odilat or respon se. Lung Volume s: There is air trappi ng Diffus ion Capaci ty: Normal diffus ion Airway Pressu re: Increa sed airway s resist ance Impres quinn Mild airflo w obstru ction with a bronch odilat or respon se. This can be consis tent with chroni c bronch itis (COPD) , uncont rolled asthma , or asthma -COPD overla p syndro me. Clinic al Correl ation theref ore is recomm ended. cc: ------ ------ ------ ------ ------ ------ ------ ------ ------ ------ ------ --- Dictat ed by: AZUCENA Schwartz MD,CHONG TTANY E Dictat ed: Time: 1323 Date: 1 325 Date: Date: Transc ribed Date: Transc ribed Time: 1322 By: NAOMI This is privil eged, confid ential inform ation, intend ed only for the provid er named. Any use or distri bution by any person other than this provid er is strict ly prohib ited. If you receiv e this report in error, please notify us immedi chichily at and return the origin al report to us at the addres s above. Thank you. [place] [id number] [place], [address] 07/26/2023 10:45:54 Result Notes None recorded. Problems Name Problem SNOMED Code Status Onset Date Resolution Date Notes Provider Name and Address Organization Details Recorded Time Anxiety disorder 671984441 Active 201611/11/19 23 - Comments only - Carmel German CLIENT SERVICE ADMINISTRATOR - See above. Problem Code: F41.9; Problem Code Type: ICD-10; Not Available [facility] 3 04:47:51 Alcohol abuse 70786928 Active 201811/11/19 23 - Comments only - Carmel German CLIENT SERVICE ADMINISTRATOR - Declines treatmen t. Problem Code: F10.10; Problem Code Type: ICD-10; Not Available [facility] 3 04:47:51 Posttrau matic stress disorder 28689760 Active 201811/11/19 23 - Comments only - Carmel German CLIENT SERVICE ADMINISTRATOR - See above. Problem Code: F43.10; Problem Code Type: ICD-10; Not Available [facility] 3 04:47:51 Nicotine dependen ce 82670779 Active 2019 Problem Code: F17.200; Problem Code Type: ICD-10; Not Available [facility] 3 04:47:51 Major depressi on, single episode 74379776 Active 201911/11/19 23 - Comments only - Carmel German CLIENT SERVICE ADMINISTRATOR - Depressi on, anxiety, PTSD, sleep issues. Has been on multiple medicati ons in the past. Also history of opiate abuse and alcohol abuse. Patient has declined any treatmen t through PCP today. Patient would like to be fully evaluate d by a psychiat manish provider for diagnosi s of bipolar or otherwis e. 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 Has been worse past 2 weeks and pain has been fairly constant . Unsure she can get to PT but encourag ed her to consider . Also gave her exercise s to do at home. Can continue to use lidocain e patches. Problem Code: M54.50; Problem Code Type: ICD-10; Not Available [facility] 3 04:47:51 Sleep disorder 36311237 Active 202211/11/19 23 - Comments only - Carmel German CLIENT SERVICE ADMINISTRATOR - See above. Patient declines any treatmen t for issues today. Problem Code: G47.9; Problem Code Type: ICD-10; Not Available [facility] 3 04:47:51 Counseli ng Completed 202212/10/2022 11/11/19 23 - Comments only - Carmel German CLIENT SERVICE ADMINISTRATOR - Now establis hed with me. She will follow-u p in [facility]. Problem Code: Z71.89; Problem Code Type: ICD-10; Not Available [facility] 3 04:47:51 Verruca plantari s 25846284 Active 2022 Problem Code: B07.0; Problem Code Type: ICD-10; Not Available [facility] 3 04:47:52 History of psychiat manish disorder 568993899 Active 2022 Problem Code: Z86.59; Problem Code Type: ICD-10; Not Available [facility] 3 04:47:52 Enthesop athy 96103718 Completed 201412/31/2016 Problem Code: M77.8; Problem Code Type: ICD-10; Not Available [facility] 3 04:47:52 Therapeu tic drug monitori ng assay 11779396 Completed 201911/06/2021 Problem Code: Z51.81; Problem Code Type: ICD-10; Not Available [facility] 3 04:47:53 Pain in right foot 34325457240 9107 Completed 201911/06/2021 Problem Code: M79.671; Problem Code Type: ICD-10; Not Available [facility] 3 04:47:53 Insomnia 133376645 Completed 201611/06/2021 Problem Code: G47.00; Problem Code Type: ICD-10; Not Available [facility] 3 04:47:53 Noninfla mmatory disorder of the vagina 82680108 Completed 201809/04/2018 Problem Code: N89.8; Problem Code Type: ICD-10; Not Available [facility] 3 04:47:53 Dysuria 89916953 Completed 201811/10/2022 Problem Code: R30.0; Problem Code Type: ICD-10; Not Available [facility] 3 04:47:53 Disorder of skin and/or subcutan eous tissue 11810043 Completed 201911/06/2021 Problem Code: L98.8; Problem Code Type: ICD-10; Not Available [facility] 3 04:47:53 Pain of right wrist 01840533606 9100 Completed 201611/06/2021 Problem Code: M25.531; Problem Code Type: ICD-10; Not Available [facility] 3 04:47:54 [id number] Completed 201811/06/2021 Problem Code: R63.6; Problem Code Type: ICD-10; Not Available [facility] 3 04:47:54 Urinary tract infectio us disease 34220627 Completed 201809/04/2018 Problem Code: N39.0; Problem Code Type: ICD-10; Not Available [facility] 3 04:47:54 Depressi ve disorder 25304160 Completed 201412/29/2022 Not Available [facility] 3 04:47:54 History of infectio us disease 610888926 Completed 201811/10/2022 Problem Code: Z86.19; Problem Code Type: ICD-10; Not Available [facility] 3 04:47:54 Self-inj urious behavior 622225417 Completed 201811/06/2021 Problem Code: Z72.89; Problem Code Type: ICD-10; Not Available [facility] 3 04:47:54 Nutritio nal deficien cy disorder 75986441 Completed 201811/06/2021 Problem Code: E63.9; Problem Code Type: ICD-10; Not Available [facility] 3 04:47:55 Chlamydi al infectio n 264157786 Completed 201812/29/2022 09/05/19 19 - Comments only - Rhoda Lopez APRN - Treated with azithrom ycin. Endocerv ical swab done today for test of cure. Problem Code: A74.9; Problem Code Type: ICD-10; Not Available [facility] 3 04:47:55 Synoviti s and tenosyno vitis 261350951 Completed 201409/04/2018 Problem Code: M65.88; Problem Code Type: ICD-10; Not Available [facility] 3 04:47:55 Acute atopic conjunct ivitis of bilatera l eyes 69658804010 9108 Completed 201603/04/2017 Problem Code: H10.13; Problem Code Type: ICD-10; Not Available [facility] 3 04:47:55 Dyspnea on exertion 17572492 Active [address], [place], [address] , [facility]. 4 11:42:08 Missed period 04766624 Active [address], [place], [address] , [facility]. 4 11:45:53 Asthma-c hronic obstruct donnie pulmonar y disease overlap syndrome 79961541234 210018 Active 2023 based on pfts on 05/24/[address], [place], [address] , [facility]. 4 16:06:04 Chronic insomnia 895951335 Active [address], [place], [address] , [facility]. 4 12:47:00 Poor short-te rm memory 019367541 Active [address], [place], [address] , [facility] 12:57:43 Hypermob ility syndrome 45858194 Active [address], [place], [address] , [facility] 13:00:12 Nightmar es 650607077 Active [address], [place], [address] , [facility] 13:17:01 Problem Notes None recorded. Procedures Surgical History Date Name Laterality Status Provider Name and Address Organization Details Recorded Time 04/26/2023 Date of Last Pap Smear completed KHOA SRIVASTAVA RN [facility], [facility] 07/26/2023 09:51:07 Imaging Results Imaging Date Name Status LastModified by Organiz ation Details LastModified Time 05/27/2023 PFT, complete completed [id number] [facility] [address] , [place], [address] 07/26/2023 10:45:54 Procedure Notes None recorded. Medical Equipment None Reported. Allergies Allergen ID Allergen Name Allergen Category Reaction Reaction Severity Criticality Documentation Date Start Date Code Code System Note Provider Name and Address Organization Details Recorded Time 38546 Canis lupus familiari s extract environme nt Not available Not available Not available 02/11/20232021 67850 4 RxNorm KHOA SRIVASTAVA RN null, [facility] 11:15:54 No known drug allergies Medications Name Sig Start Date Stop Date Status Note LastModified by Organization Details LastModified Time fluoxetin e 40 mg capsule 1TAB daily 12/21 completed Not Available Not Available Not Available amoxicill in 500 mg capsule TAKE TWO CAPSULES BY MOUTH NOW, THEN TAKE ONE CAPSULE BY MOUTH EVERY 8 HOURS UNTIL GONE 04/26 completed Not Available Not Available Not Available acetamino phen 325 mg tablet 2 02/17 completed Not Available Not Available Not Available trazodone 50 mg tablet Take 1 tab by mouth daily at bedtime 08/11 completed Not Available Not Available Not Available azithromy jose 250 mg tablet Take 4 tabs by mouth now 09/12 completed Not Available Not Available Not Available ibuprofen 800 mg tablet TAKE ONE TABLET BY MOUTH EVERY 8 HOURS WITH FOOD 07/25 completed Not Available Not Available Not Available Patanol 0.1 % eye drops Use 1 drop in each eye twice daily 08/11 completed Not Available Not Available Not Available Periactin 4 mg tablet 3 tabs at bedtime 08/22 completed Not Available Not Available Not Available naltrexon e 50 mg tablet Take 1 tablet once a day 11/06 completed Not Available Not Available Not Available metronida zole 0.75 % (37.5 mg/5 gram) vaginal gel Insert nightly into vagina x 5.nights 09/12 completed Not Available Not Available Not Available Medrol (Rafael) 4 mg tablets in a dose pack 1 TAB DIRECTED 11/20 completed Not Available Not Available Not Available Phenergan 25 mg tablet 1TAB 25 mg 02/24 completed Not Available Not Available Not Available fluoxetin e 10 mg tablet 1 qd 09/08 completed Not Available Not Available Not Available penicilli n V potassium 500 mg tablet 1TAB tid 12/23 completed Not Available Not Available Not Available triamcino lone acetonide 0.1 % topical cream crm bid 03/10 completed Not Available Not Available Not Available Macrobid 100 mg capsule Take 1 cap by mouth twice daily 08/16 completed Not Available Not Available Not Available IBU 600 mg tablet 1TAB tid 08/22 completed Not Available Not Available Not Available fluoxetin e 20 mg tablet daily 08/22 completed Not Available Not Available Not Available fluoxetin e 10 mg capsule Take 1 tab by mouth daily 2016 active Not Available Not Available Not Avai lable cephalexi n 500 mg tablet Take 1 tablet by mouth twice a day 11/06 completed Not Available Not Available Not Available mirtazapi ne 15 mg tablet Take 1 tablet by mouth every night 11/23 completed Not Available Not Available Not Available fluoxetin e 20 mg capsule Take 1 tab by mouth daily 08/11 completed Not Available Not Available Not Available amoxicill in 875 mg-potass ium clavulana te 125 mg tablet TAKE ONE TABLET BY MOUTH TWICE A DAY FOR 10 DAYS 04/26 completed Not Available Not Available Not Available nabumeton e 500 mg tablet Take 1 tablet by mouth twice a day as needed for pain 12/21 completed Not Available Not Available Not Available Ventolin HFA 90 mcg/actua tion aerosol inhaler INHALE 2 PUFFS BY MOUTH EVERY 4 HOURS NEEDED active Not Available Not Available No t Available hydroxyzi ne pamoate 25 mg capsule Take 1 capsule by mouth twice a day as needed 11/06 completed Not Available Not Available Not Available Depo-Prov era 150 mg/mL intramusc ular syringe 1INJ q 3 months 04/18 completed Not Available Not Available Not Available cyclobenz aprine 5 mg tablet Take 1-2 tablet by mouth at bedtime 12/07 completed Not Available Not Available Not Available mirtazapi ne 7.5 mg tablet TAKE ONE TABLET BY MOUTH AT BEDTIME 2023 active Not Available Not Available Not Avai lable Tylenol-C odeine #3 1TAB .qid , prn throat 08/10 completed Not Available Not Available Not Available ibuprofen 08/10 completed Not Available Not Available Not Available Advair HFA 115 mcg-21 mcg/actua tion aerosol inhaler Inhale 1 puff twice a day by inhalati on route, for asthma/c opd. 2023 active Not Available Not Available Not Avai lable Xopenex HFA 2INH q 4-6 h 04/02 completed Not Available Not Available Not Available Nexplanon 68 mg subdermal implant 2023 active inserted by [facility] 4 Not Available Not Available Not Available Vitals Date Recorded Body height Body mass index (BMI) Body weight Body temperature Heart rate Respiratory rate Systolic blood pressure Diastolic blood pressure Provider Name and Address Organization Details Last Updated DateTime 4 171.45 cm 22.1 kg/m2 78158.1 5 g 97.9 [degF] 72 /min 16 /min 98 mm[Hg] 60 mm[Hg] KHOA SRIVASTAVA RN [facility] 4 11:40:17 Date Recorded Body height Body mass index (BMI) Body weight Body temperature Oxygen saturation Oxygen saturation in Arterial blood by Pulse oximetry Heart rate Respiratory rate Provider Name and Address Organization Details Last Updated DateTime 4 171.45 cm 23.8 kg/m2 29535.2 2 g 98.2 [degF] 98 % 98 % 72 /min 16 /min KHOA SRIVASTAVA RN [facility] 4 10:29:50 Date Recorded Body height Body mass index (BMI) Body weight Body temperature Heart rate Respiratory rate Systolic blood pressure Diastolic blood pressure Provider Name and Address Organization Details Last Updated DateTime 4 171.45 cm 25.8 kg/m2 00301.3 6 g 97.5 [degF] 78 /min 16 /min 118 mm[Hg] 72 mm[Hg] KHOA SRIVASTAVA RN [facility] 4 12:43:35 Social History Question Answer Notes LastModified by Organizat ion Details LastModified Time Tobacco Smoking Status Current Every Day Smoker KHOA SRIVASTAVA RN [facility], [facility] 04/26/2023 11:35:40 What Type Of Diet Are You Following? REGULAR Information not available 04/26/2023 How Many Times Per Week Do You Exercise? 3-4 Times Per Week Walking About 0.5 Mile To Work Daily Information not available 04/26/2023 Who Do You Live With? Alone, 2 Cats. Information not available 04/26/2023 At What Age Did You Start Smoking Tobacco? 11 Information not available 04/26/2023 How Much Tobacco Do You Smoke? 0.25 PPD Pt States 5-7 Cigs/day, Mostly While At Work Information not available 10/26/2023 Do You Have Any Dietary Restrictions? No Information not available 04/26/2023 Do You Or Have You Ever Used Any Other Forms Of Tobacco Or Nicotine? No Information not available 04/26/2023 Sex: Female Functional Status Question Answer Note LastModified by Organization D etails LastModified Time What is your exercise level? Moderate Information not available 04/26/2023 Mental Status None recorded. Family History Relationship Description Onset Age of this Age Resolved Age Notes Father Family history of Depression Mother Family history of Depression Maternal Grandmother Family history of diabetes mellitus type 1 Medical History No medical history recorded. Gynecological History Statement/Question Response Abnormal Pap N Date of Last Pap Smear 04/26/2023 Current Control Method Implant LMP Unknown Obstetrics History GPAL:G 0 P 0 0 0 0 Immunizations Vaccine Type Date Status Provider Name and Address Organization Details Recorded Time COVID-19, mRNA, LNP-S, PF, carla-sucrose, 30 mcg/0.3 mL 04/26/2023 completed CARMEL GERMAN, ANGEL[address], [place], [address], [facility] 04/26/2023 12:51:25 MMR 11/03/2000 completed Not Available [facility] 05:12:15 MMR 11/19/1997 completed Not Available [facility] 05:12:16 DTaP, unspecified formulation 07/30/1997 completed Not Available [facility] 02/11/2023 05:12:16 DTaP, unspecified formulation 09/02/1998 completed Not Available [facility] 02/11/2023 05:12:16 DTaP, unspecified formulation 11/03/2000 completed Not Available [facility] 02/11/2023 05:12:16 DTaP, unspecified formulation 11/09/1997 completed Not Available [facility] 02/11/2023 05:12:16 DTaP, unspecified formulation 02/27/1997 completed Not Available [facility] 02/11/2023 05:12:17 meningococcal ACWY, unspecified formulation 10/28/2009 completed Not Available [facility] 02/11/2023 05:12:17 Tdap 10/15/2019 completed Not Available [facility] 05:12:17 Td(adult) unspecified formulation 06/28/2008 completed Not Available [facility] 02/11/2023 05:12:17 Hib, unspecified formulation 07/30/1997 completed Not Available [facility] 02/11/2023 05:12:18 Hib, unspecified formulation 09/02/1998 completed Not Available [facility] 02/11/2023 05:12:18 Hib, unspecified formulation 11/09/1997 completed Not Available [facility] 02/11/2023 05:12:18 Hib, unspecified formulation 02/27/1997 completed Not Available [facility] 02/11/2023 05:12:19 varicella 05/03/2007 completed Not Available [facility] 05:12:19 varicella 02/04/2000 completed Not Available [facility] 05:12:19 SARS-COV-2 (COVID-19) vaccine, UNSPECIFIED 11/26/2020 completed Not Available [facility] 02/11/2023 05:12:20 SARS-COV-2 (COVID-19) vaccine, UNSPECIFIED 12/17/2020 completed Not Available [facility] 02/11/2023 05:12:20 Hep B, unspecified formulation 07/30/1997 completed Not Available [facility] 02/11/2023 05:12:20 Hep B, unspecified formulation 1996 completed Not Available [facility] 02/11/2023 05:12:20 Hep B, unspecified formulation 02/27/1997 completed Not Available [facility] 02/11/2023 05:12:21 HPV, quadrivalent 08/25/2010 completed Not Available [facility]23 05:12:21 HPV, quadrivalent 12/11/2009 completed Not Available [facility] 02/11/2023 05:12:21 HPV, quadrivalent 02/12/2010 completed Not Available [facility] 02/11/2023 05:12:21 Hep A, unspecified formulation 05/03/2007 completed Not Available [facility] 02/11/2023 05:12:21 Hep A, unspecified formulation 06/28/2008 completed Not Available [facility] 02/11/2023 05:12:21 influenza, unspecified formulation 03/03/2011 completed Not Available [facility] 02/11/2023 05:12:24 polio, unspecified formulation 07/30/1997 completed Not Available [facility] 02/11/2023 05:12:25 polio, unspecified formulation 11/03/2000 completed Not Available [facility] 02/11/2023 05:12:25 polio, unspecified formulation 11/19/1997 completed Not Available [facility] 02/11/2023 05:12:25 polio, unspecified formulation 02/04/2000 completed Not Available [facility] 02/11/2023 05:12:25 Past Encounters Encounter ID Performer Location Encounter Start Date Encounter Closed Date Diagnosis/Indication Diagnosis SNOMED-CT Code Diagnosis ICD10 Code [id number] CARMEL GERMAN [facility] [address] [place] [address] 04/26/2023 11:18:18 04/26/2023 12:26:08 Adult health examination 772468085 Z00.00 Active or passive immunization 270376394 Z23 Gynecologi c examination 72273728 Z01.419 Dyspnea on exertion 6084 5006 R06.09 Nicotine dependence 5629 4008 F17.200 Missed period 69215385 N 92.5 [id number] CARMEL GERMAN [facility] [address] [place] [address] 07/26/2023 10:21:35 07/26/2023 10:58:13 Uncomplicated mild persistent asthma 640490958 J45.30 Chronic insomnia 1059588 04 F51.04 [id number] CARMEL GERMAN [facility] [address] [place] [address] 10/26/2023 12:23:40 10/26/2023 13:16:31 Anxiety disorder 933391584 F41.9 Major depr ession, single episode 34342260 F32.9 Posttrauma tic stress disorder 89356925 F43.10 Chronic insomnia 4225821 04 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 9380790020 5365908 J44.9 Poor short -term memory 748714043 R41.3 Alcohol abuse 38217315 F 10.10 Nightmares 203185612 F51 .5 Health Concerns Section Related Observation LastModified by Organization Detai ls LastModified Time None Recorded Concern Status LastModified by Organization Details LastModified Time None Recorded Advance Directives Directive None Recorded Payers Encounter Date Sequence Insurance Name Policy Number Policy [place] Covered Member ID [place] Member ID Guarantor Name 04/26/2023 1 [facility] (MEDICAID) Carmel Doe Otilio [id number] Carmel Doe Otilio 07/26/2023 1 [facility] (MEDICAID) Carmel Doe Otilio [id number] Carmel Doe Otilio 10/26/2023 1 [facility] (MEDICAID) Carmel Doe Otilio [id number] Carmel Doe Otilio Notes Date Note Type Note Provider Name and Address Organization Details Recorded Time 04/26/2023 text/html HPI Notes: Carmel tan s a 27-year-old female here today for annual preventative healthcare exam with Pap. Is concerned about irregular periods and potential . Does have Nexplanon but is wondering about effectiveness. Has had Nexplanon repeatedly over the past 9 years. Says that she has a new partner and would like some STD testing. Denies any symptoms. Denies any breast tenderness. hCG urine today in clinic is negative. Discussed with her that at her last office visit we had talked about her establishing care with psychiatric nurse practitioner here for general assessment of official diagnosis of her mood swings anxiety depression. She unfortunately declined to schedule when they called her back in December. Says she is thinking about rereferral but declines any medication at this time and declines referral at this time. Declines counseling at this time. Is drinking daily and says it is a fair amount. Will not quantify it for me. Declines help with alcohol cessation. Has had 3 partners in the past 6 months. Vapes daily. Noticing some shortness of breath on exertion. Has never had pulmonary function test. Says she also has a pretty strong reaction to dogs she will get wheezing. Used her friend's albuterol and it was helpful. CARMEL GERMAN, ANGELO [address], [place], [address], [facility]. 04/26/2023 12:57:27 07/26/2023 text/html HPI Notes: Carmel tan s a pleasant 27-year-old female here today for a 3 month follow up: dyspnea on exertion; discussed cessation of smoking and vaping at last office visit. Currently smoking 7 to 10 cigarettes a day. PFT done 05/27/23 showed asthma/COPD overlap; pt given albuterol inhaler prior and was advised to start daily inhaler (pulmicort/flovent) but did not know how to respond on portal so didn't start. Having issues with insomnia. Used to be on mirtazapine 7.5 mg but stopped the in the past. Is wondering about restarting see if she can get her sleep under better control. CARMEL EGRMAN, [employer] [address], [place], [address], [facility]. 08/21/2023 17:43:14 10/26/2023 text/html HPI Notes: Carmel tan s a 28-year-old female here today for a 3 month follow up: COPD/asthma overlap, insomnia/depression /anxiety/alcohol abuse/PTSD (re-started mirtazapine 7.5mg in July). Reports her sleep is still not great. Thinks that she could use an increase on the mirtazapine up to 15 mg. Previously we was on 15 mg. Has history of nightmares and reports they are very traumatic. It wakes up crying a lot. The mirtazapine did not make her nightmares worse. Says that it does help her sleep but she is wondering about perhaps now seeing psychiatrist for her PTSD as well as anxiety and depression as well as alcohol abuse. Discussed alcohol abuse and what she would be willing to try as far as medication. Says she cannot seem to stay sober long enough to start any medication. Advised her there are meds we can potentially start to help her stop drinking and she wants to think about this. Reports she does not really have any friends in her life and does not really have anything good to look forward to. Is working at [employer] still and just drinks alcohol at night as part of her way to calm her brain down and relax. Also way to deal with her depression and loneliness. Would now be open to psychiatry referral and would like evaluation as to what she might be diagnosed with. Reports she is never really seen a psychiatrist before. Does not want to go to [facility] [employer]. Denies SI or HI. Denies chest pain or chest tightness dizziness or tremor. Reports she has a poor short-term memory secondary to alcohol use and poor sleep. Knows that she needs to change this and is starting to become motivated to do so. Does have resources for AA meetings and support in the community. Declines admission to any treatment center. Her last office visit in July I did start her on Advair HFA for overlap of COPD and asthma based on pulmonary function test. Reports her breathing has been good. No negative side effects. No sores in mouth. Does not always take it every day but does notice it improves her breathing. Sometimes forgets. CARMEL GERMAN, [employer] INCOME MANAGER [address], [place], [address], [facility], [facility]. 11/02/2023 22:30:28 OBGyn Episode No OBEpisode recorded.
--- OUTSIDE RECORDS SUMMARY | 2023-12-09 17:21 | XMS_ITS | Encounter Summary ---
Author Organization [facility] Address [address] [place] [address] Care Team Providers Care Budget Counselor Name Role Phone Unknown, Provider Primary Care Provider Encounter Details Date Type Department Care Team (Late st Contact Info) Description 04/26/2023 Lab Requisition [facility] Pathology & Laboratory Medicine - [facility] [address] [place] [address] Outr Resulting Lab, Provider Social History Tobacco [...] Procedure Name Priority Date/Time Associated Diagnosis Comments SYPHILIS SEROLOGY Routine 04/26/2023 12: 20 EST HEPATITIS C AB W REFLEX TO HCV RNA BY PCR Routine 04/26/2023 12:20 EST documented in this encounter Results * SYPHILIS SEROLOGY (04/26/2023 12:20 EST) Syphilis Serology Negative Negative 04/27/2023 10:36 EST [facility] Blood VENOUS BLOOD / Unknown 04/26/2023 12:20 EST 04/26/2023 21:26 EST Provider Outr Resulting Lab IMMUNOLOGY A ND SEROLOGY ORDERABLES [facility] [address] [place] [address] * HEPATITIS C AB W REFLEX TO HCV RNA BY PCR (04/26/2023 12:20 EST) Hep C Antibody Negative Negative 04/26/2023 23:21 EST [facility] Blood VENOUS BLOOD / Unknown 04/26/2023 12:20 EST 04/26/2023 21:26 EST Provider Outr Resulting Lab CHEMISTRY & BLOOD GAS ORDERABLES Performing Organization Address City/State/[facility] Co de Phone Number [facility] [address] [place] [address] documented in this encounter Visit Diagnoses Not on filedocumented in this encounter Care Teams Budget Counselor Relationship Specialty Start Date End Date Unknown, Provider, PCP - General 09/05/18 documented as of this encounter
--- OUTSIDE RECORDS SUMMARY | 2023-12-09 17:21 | XMS_ITS | Continuity of Care Document ---
Author Organization [place] - [facility] Address [address] [place] [address] Assessment No assessment recorded. Plan of Treatment Reminders Order Date Submit Date Provider Last Modified By Organization Details Last Modified Time Details Appointments Follow Up 2023 10:00A M Not available Not available Not available Follow Up 2023 02:00P M Not available Not available Not available Lab None recorded. Referral psychiatr ist referral 2023 [facility], [address], [place], [address], 12/03/2023 04:05:46 Procedures None recorded. Surgeries None recorded. Imaging None recorded. Medication Orders mirtazapi ne 15 mg tablet 2023 024 [facility], [address] [place], [address], 11/24/2023 16:04:54 Patient TargetsNo targets recorded. Patient InstructionsNo instructions recorded. Reason for Referral Psychiatrist Referral for Po sttraumatic stress disorder ptsd, anxiety, depression, nightmares/terrors, alcohol abuse- wants a psych eval. failed on many med Referring Physician: Carmel German, Family Medicine, Encounter Date: 10/26/2023 Problems Name Problem SNOMED Code Status Onset Date Resolution Date Notes Provider Name and Address Organization Details Recorded Time Anxiety disorder 809677041 Active 201611/11/19 23 - Comments only - Carmel German BACK ROLLER - See above. Problem Code: F41.9; Problem Code Type: ICD-10; Not Available [facility] 3 04:47:51 Alcohol abuse 48157800 Active 201811/11/19 23 - Comments only - Carmel German BACK ROLLER - Declines treatmen t. Problem Code: F10.10; Problem Code Type: ICD-10; Not Available formerly [facility] 3 04:47:51 Posttrau matic stress disorder 83658675 Active 201811/11/19 23 - Comments only - Carmel German BACK ROLLER - See above. Problem Code: F43.10; Problem Code Type: ICD-10; Not Available formerly [facility] 3 04:47:51 Nicotine dependen ce 18714203 Active 2019 Problem Code: F17.200; Problem Code Type: ICD-10; Not Available formerly [facility] 3 04:47:51 Major depressi on, single episode 84003537 Active 201911/11/19 23 - Comments only - Carmel German BACK ROLLER - Depressi on, anxiety, PTSD, sleep issues. Has been on multiple medicati ons in the past. Also history of opiate abuse and alcohol abuse. Patient has declined any treatmen t through PCP today. Patient would like to be fully evaluate d by a psychiat manish provider for diagnosi s of bipolar or otherwis e. Problem Code: F32.9; Problem Code Type: ICD-10; Not Available formerly [facility] 3 04:47:51 Low back pain 599596735 Active 202111/07/19 22 - Comments only - [...] M54.50; Problem Code Type: ICD-10; Not Available formerly [facility] 3 04:47:51 Sleep disorder 25342873 Active 202211/11/19 23 - Comments only - Carmel German BACK ROLLER - See above. Patient declines any treatmen t for issues today. Problem Code: G47.9; Problem Code Type: ICD-10; Not Available [facility] 3 04:47:51 Counseli hari Completed 202212/10/2022 11/11/19 23 - Comments only - Carmel German BACK ROLLER - Now establis hed with me. She will follow-u p in 3 months for annual preventa tive healthca re exam with Pap. Problem Code: Z71.89; Problem Code Type: ICD-10; Not Available [facility] 3 04:47:51 Verruca plantari s 36350476 Active 2022 Problem Code: B07.0; Problem Code Type: ICD-10; Not Available [facility] 3 04:47:52 History of psychiat manish disorder 321956433 Active 2022 Problem Code: Z86.59; Problem Code Type: ICD-10; Not Available [facility] 3 04:47:52 Enthesop athy 65347280 Completed 201412/31/2016 Problem Code: M77.8; Problem Code Type: ICD-10; Not Available [facility] 3 04:47:52 Therapeu tic drug monitori ng assay 86406197 Completed 201911/06/2021 Problem Code: Z51.81; Problem Code Type: ICD-10; Not Available formerly [facility] 3 04:47:53 Pain in right foot 53967165545 9107 Completed 201911/06/2021 Problem Code: M79.671; Problem Code Type: ICD-10; Not Available [facility] 3 04:47:53 Insomnia 667191899 Completed 201611/06/2021 Problem Code: G47.00; Problem Code Type: ICD-10; Not Available [facility] 3 04:47:53 Noninfla mmatory disorder of the vagina 86271611 Completed 201809/04/2018 Problem Code: N89.8; Problem Code Type: ICD-10; Not Available [facility] 3 04:47:53 Dysuria 15609859 Completed 201811/10/2022 Problem Code: R30.0; Problem Code Type: ICD-10; Not Available formerly [facility] 3 04:47:53 Disorder of skin and/or subcutan eous tissue 23189554 Completed 201911/06/2021 Problem Code: L98.8; Problem Code Type: ICD-10; Not Available formerly [facility] 3 04:47:53 Pain of right wrist 36007554495 9100 Completed 201611/06/2021 Problem Code: M25.531; Problem Code Type: ICD-10; Not Available formerly [facility] 3 04:47:54 Underwei ght 278691433 Completed 201811/06/2021 Problem Code: R63.6; Problem Code Type: ICD-10; Not Available formerly [facility] 3 04:47:54 Urinary tract infectio us disease 26118314 Completed 201809/04/2018 Problem Code: N39.0; Problem Code Type: ICD-10; Not Available formerly [facility] 3 04:47:54 Depressi ve disorder 32829226 Completed 201412/29/2022 Not Available formerly [facility] 3 04:47:54 History of infectio us disease 528267470 Completed 201811/10/2022 Problem Code: Z86.19; Problem Code Type: ICD-10; Not Available formerly [facility] 3 04:47:54 Self-inj urious behavior 508410584 Completed 201811/06/2021 Problem Code: Z72.89; Problem Code Type: ICD-10; Not Available formerly [facility] 3 04:47:54 Nutritio nal deficien cy disorder 48632661 Completed 201811/06/2021 Problem Code: E63.9; Problem Code Type: ICD-10; Not Available formerly [facility] 3 04:47:55 Chlamydi al infectio n 035266600 Completed 201812/29/2022 09/05/19 19 - Comments only - Rhoda Lopez APRN - Treated with azithrom ycin. Endocerv ical swab done today for test of cure. Problem Code: A74.9; Problem Code Type: ICD-10; Not Available formerly [facility] 3 04:47:55 Synoviti s and tenosyno vitis 895518512 Completed 201409/04/2018 Problem Code: M65.88; Problem Code Type: ICD-10; Not Available formerly [facility] 3 04:47:55 Acute atopic conjunct ivitis of bilatera l eyes 57561373120 9108 Completed 201603/04/2017 Problem Code: H10.13; Problem Code Type: ICD-10; Not Available formerly [facility] 3 04:47:55 Dyspnea on exertion 37479351 Active [address], [facility] [address] , [facility] 4 11:42:08 Missed period 17822520 Active [address], [facility] [address] , [facility] 4 11:45:53 Asthma-c hronic obstruct donnie pulmonar y disease overlap syndrome 70385034131 707946 Active 2023 based on pfts on 05/24/[address], [facility] [address] , [facility]. 4 16:06:04 Chronic insomnia 432453267 Active [address], [facility] [address] , [facility]. 4 12:47:00 Poor short-te rm memory 935743175 Active [address], [facility] [address] , [facility]. 4 12:57:43 Hypermob ility syndrome 96536641 Active [address], [place], [address] , [facility] 4 13:00:12 Nightmar es 305868434 Active 2023 ANGELO FARNSWORTH [address], [place], [address] , [facility] 4 13:17:01 Problem Notes None recorded. Procedures Surgical History Date Name Laterality Status Provider Name and Address Organization Details Recorded Time 04/26/2023 Date of Last Pap Smear completed GHISLAINE SÁNCHEZ, [facility] 07/26/2023 09:51:07 Imaging Results None recorded. Procedure Notes None recorded. Medical Equipment None Reported. Allergies Allergen ID Allergen Name Allergen Category Reaction Reaction Severity Criticality Documentation Date Start Date Code Code System Note Provider Name and Address Organization Details Recorded Time Canis lupus familiari s extract environme nt Not available Not available Not available 02/11/20232021 46354 4 RxNorm KHOA SRIVASTAVA RN null, [facility] 4 11:15:54 No known drug allergies Medications Name [...] mg subdermal implant 2023 active inserted by [facility] 4 Not Available Not Available Not Available Vitals Date Recorded Body height Body mass index (BMI) Body weight Body temperature Heart rate Respiratory rate Systolic blood pressure Diastolic blood pressure Provider Name and Address Organization Details Last Updated DateTime 4 171.45 cm 25.8 kg/m2 03507.3 6 g 97.5 [degF] 78 /min 16 /min 118 mm[Hg] 72 mm[Hg] KHOA SRIVASTAVA RN [place] [facility] 4 12:43:35 Social History Question Answer Notes LastModified by Organizat ion Details LastModified Time Tobacco Smoking Status Current Every Day Smoker KHOA SRIVASTAVA RN [facility], [facility] 04/26/2023 11:35:40 What Type Of Diet [...] PF, carla-sucrose, 30 mcg/0.3 mL 04/26/2023 completed ANGELO FANRSWORTH [address], [place], [address], [facility] 04/26/2023 12:51:25 MMR 11/03/2000 completed Not Available [facility] 05:12:15 MMR 11/19/1997 completed Not Available [facility] 05:12:16 DTaP, unspecified formulation 07/30/1997 completed Not Available formerly [facility] 02/11/2023 05:12:16 DTaP, unspecified formulation 09/02/1998 completed Not Available formerly [facility] 02/11/2023 05:12:16 DTaP, unspecified formulation 11/03/2000 completed Not Available formerly [facility] 02/11/2023 05:12:16 DTaP, unspecified formulation 11/09/1997 completed Not Available formerly [facility] 02/11/2023 05:12:16 DTaP, unspecified formulation 02/27/1997 completed Not Available formerly [facility] 02/11/2023 05:12:17 meningococcal ACWY, unspecified formulation 10/28/2009 completed Not Available formerly [facility] 02/11/2023 05:12:17 Tdap 10/15/2019 completed Not Available formerly [facility] 05:12:17 Td(adult) unspecified formulation 06/28/2008 completed Not Available formerly [facility] 02/11/2023 05:12:17 Hib, unspecified formulation 07/30/1997 completed Not Available formerly [facility] 02/11/2023 05:12:18 Hib, unspecified formulation 09/02/1998 completed Not Available formerly [facility] 02/11/2023 05:12:18 Hib, unspecified formulation 11/09/1997 completed Not Available formerly [facility] 02/11/2023 05:12:18 Hib, unspecified formulation 02/27/1997 completed Not Available formerly [facility] 02/11/2023 05:12:19 varicella 05/03/2007 completed Not Available formerly [facility] 05:12:19 varicella 02/04/2000 completed Not Available formerly [facility] 05:12:19 SARS-COV-2 (COVID-19) vaccine, UNSPECIFIED 11/26/2020 completed Not Available formerly [facility] 02/11/2023 05:12:20 SARS-COV-2 (COVID-19) vaccine, UNSPECIFIED 12/17/2020 completed Not Available formerly [facility] 02/11/2023 05:12:20 Hep B, unspecified formulation 07/30/1997 completed Not Available [facility] 02/11/2023 05:12:20 Hep B, unspecified formulation 1996 completed Not Available formerly [facility] 02/11/2023 05:12:20 Hep B, unspecified formulation 02/27/1997 completed Not Available formerly [facility] 02/11/2023 05:12:21 HPV, quadrivalent 08/25/2010 completed Not Available [facility] 02/11/2023 05:12:21 HPV, quadrivalent 12/11/2009 completed Not Available [facility] 02/11/2023 05:12:21 HPV, quadrivalent 02/12/2010 completed Not Available [facility] 02/11/2023 05:12:21 Hep A, unspecified formulation 05/03/2007 completed Not Available formerly [facility] 02/11/2023 05:12:21 Hep A, unspecified formulation 06/28/2008 completed Not Available formerly [facility] 02/11/2023 05:12:21 influenza, unspecified formulation 03/03/2011 completed Not Available formerly [facility] 02/11/2023 05:12:24 polio, unspecified formulation 07/30/1997 completed Not Available formerly [facility] 02/11/2023 05:12:25 polio, unspecified formulation 11/03/2000 completed Not Available formerly [facility] 02/11/2023 05:12:25 polio, unspecified formulation 11/19/1997 completed Not Available formerly [facility] 02/11/2023 05:12:25 polio, unspecified formulation 02/04/2000 completed Not Available formerly [facility] 02/11/2023 05:12:25 Past Encounters Encounter ID Performer Location Encounter Start Date Encounter Closed Date Diagnosis/Indication Diagnosis SNOMED-CT Code Diagnosis ICD10 Code [id number] ANGELO AFRNSWORTH [address] [place] [address] 10/26/2023 12:23:40 10/26/2023 13:16:31 Anxiety disorder 896656485 F41.9 Major depr ession, single episode 50103206 F32.9 Posttrauma tic stress disorder 28096300 F43.10 Chronic insomnia 2225981 04 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 0743618398 2750829 J44.9 Poor short -term memory 508614866 R41.3 Alcohol abuse 14466991 F 10.10 Nightmares 380737509 F51 .5 Health Concerns Section Related Observation LastModified by Organization Detai ls LastModified Time None Recorded Concern Status LastModified by Organization Details LastModified Time None Recorded Payers Encounter Date Sequence Insurance Name Policy Number Policy Dumont Covered Member ID Dumont Member ID Guarantor Name 10/26/2023 1 [facility] (MEDICAID) Carmel Yañez [id number] Carmel Doe Otilio Notes Date Note Type Note Provider Name and Address Organization Details Recorded Time 10/26/2023 text/html HPI Notes: Carmel tan s a 28-year-old female here today for a 3 month follow up: COPD/asthma overlap, insomnia/depressio n/anxiety/alcohol abuse/PTSD (re-started mirtazapine 7.5mg in July). Reports [...] before. Does not want to go to [facility] [employer]. Denies SI or HI. Denies chest pain [...] improves her breathing. Sometimes forgets. CARMEL GERMAN, ANGELO [address], [place], [address], [facility]. 11/02/2023 22:30:28 OBGyn Episode No OBEpisode recorded.
--- OUTSIDE RECORDS SUMMARY | 2023-12-09 17:21 | XMS_ITS | Encounter Summary ---
Author Organization [facility] Address [address] [place] [address] Care Team Providers Care Tire Center Manager Name Role Phone Unknown, Provider Primary Care Provider Encounter Details Date Type Department Care Team (Late st Contact Info) Description 04/26/2023 Lab Requisition [facility] Pathology & Laboratory Medicine - [facility] [address] [place] [address] Outr Resulting Lab, Provider Social History Tobacco [...] Procedure Name Priority Date/Time Associated Diagnosis Comments HIV 1/2 ANTIGEN AND ANTIBODY, 4TH GENERATION Routine 04/26/2023 12:20 EST documented in this encounter Results * HIV 1/2 ANTIGEN AND ANTIBODY, 4TH GENERATION (04/26/2023 12:20 EST) HIV 1 and 2 Antibody/p24 Antigen, 4th Generation Negative Negative 04/26/2023 23:20 EST [facility] Comment:If acute HIV-1 infec tion is suspected in a high risk patient, submit plasma specimen for HIV-1 RNA quantitation test. Blood VENOUS BLOOD / Unknown 04/26/2023 12:20 EST 04/26/2023 21:25 EST Narrative [facility] - 04/26/2023 23:20 EST Fourth Generation assay performed on the Siemens Centaur XPT. Provider Outr Resulting Lab IMMUNOLOGY A ND SEROLOGY ORDERABLES [facility] [address] [place] [address] documented in this encounter Visit Diagnoses Not on filedocumented in this encounter Care Teams Tire Center Manager Relationship Specialty Start Date End Date Unknown, Provider, PCP - General 09/05/18 documented as of this encounter
--- OUTSIDE RECORDS SUMMARY | 2023-12-09 17:21 | XMS_ITS | Referral Summary ---
Author Organization [facility] Address [address] [place] [address] Care Team Providers Care Bioprocessing Manufacturing Technician Name Role Phone Unknown, Provider Primary Care Provider [phone] Social History Tobacco Use Types Packs/Day Years Used Date Smoking Tobacco: Never Assessed Sex and Gender Information Value Date Recorded Sex Assigned at Not on file Gender Identity Not on file Sexual Orientation Not on file Plan of Treatment Not on file Procedures Procedure Name Priority Date/Time Associated Diagnosis Comments HEPATITIS C AB W REFLEX TO HCV RNA BY PCR Routine 04/26/2023 12:20 EST from Last 3 Months or Most Recently Relevant to Health Maintenance Results * HEPATITIS C AB W REFLEX TO HCV RNA BY PCR (04/26/2023 12:20 EST) Hep C Antibody Negative Negative 04/26/2023 23:21 EST [facility] Blood VENOUS BLOOD / Unknown 04/26/2023 12:20 EST 04/26/2023 21:26 EST Provider Outr Resulting Lab CHEMISTRY & BLOOD GAS ORDERABLES [facility] [address] [place] [address] from Last 3 Months or Most Recently Relevant to Health Maintenance Care Teams Bioprocessing Manufacturing Technician Relationship Specialty Start Date End Date Unknown, Provider, PCP - General 09/05/18
--- OUTSIDE RECORDS SUMMARY | 2023-12-09 17:21 | XMS_ITS | Encounter Summary ---
Author Organization [facility] Address [address] [place] [address] Care Team Providers Care Project Geophysicist Name Role Phone Unknown, Provider Primary Care Provider Encounter Details Date Type Department Care Team (Late st Contact Info) Description 04/26/2023 Lab Requisition [facility] Pathology & Laboratory Medicine - [address] [address] Outr Resulting Lab, Provider Social History Tobacco [...] Associated Diagnosis Comments CHLAMYDIA/N. GONORRHOEAE AMPLIFIED NUCLEIC ACID, THINPREP Routine 04/26/2023 11:50 EST documented in this encounter Results * CHLAMYDIA/N. GONORRHOEAE AMPLIFIED RNA, THINPREP (04/26/2023 11:50 EST) Neisseria gonorrhoeae Result Negative Negative 04/27/2023 14:31 EST [facility] Chlamydia trachomatis Result Negative Negative 04/27/2023 14:31 EST [facility] Pap Test CERVIX UTERI STRUCTURE / Unknown 04/26/2023 11:50 EST 04/27/2023 10:25 EST Provider Outr Resulting Lab MICROBIOLOGY - GENERAL ORDERABLES [facility] [address] [place] [address] documented in this encounter Visit Diagnoses Not on filedocumented in this encounter Care Teams Project Geophysicist Relationship Specialty Start Date End Date Unknown, Provider, PCP - General 09/05/18 documented as of this encounter
[2023-12-09 17:45] LABS: Abs Immature Grans 0.03 10^3/uL (0.0-0.06); Absolute Basophil Count 0.06 10^3/uL (0.0-0.2); Absolute Eosinophil Count 0.18 10^3/uL (0.0-0.7); Absolute Lymphocyte Count 2.17 10^3/uL (1.2-3.4); Absolute Monocyte Count 0.37 10^3/uL (0.1-0.8); Absolute Neutrophil Count 4.64 10^3/uL (1.2-6.7); Basophils % 0.8 %; Eosinophils % 2.4 %; HCT 40.3 % (36.0-46.0); HGB 13.8 g/dL (11.2-15.7); Immature Grans % 0.4 %; Lymphocytes % 29.1 %; MCH 30.7 pg (27.0-33.0); MCHC 34.2 % (32.0-36.0); MCV 90 fL (80-95); MPV 10.2 fL (8.0-11.0); Neutrophils % 62.3 %; Platelet Count 223 10^3/uL (130-400); RDW 11.4 % (11.7-14.6); RDW-SD 37.1 fL; WBC 7.45 10^3/uL (4.4-10.8)
--- NOTE | 2023-12-09 17:56 | ED.GENADUL_ITS ---
Discharge Plan Disposition Patient Disposition: Home Condition: Stable Discharge Details Clinical Impression: Suicidal ideation, Transaminitis, Nightmare Primary Care Provider: Unknown,Unknown ED Provider: Katerin Cobb Home Meds and New Rx's Prescriptions: New prazosin 1 mg capsule 1 mg PO QHS Qty: 30 0RF Rx Instructions: Take 1 pill at bedtime for the next 2-3 days, then take two pills at bedtime for the next 2-3 days, then 3 pills at bedtime until re-evaluated No Action Nexplanon 68 mg implant 1 implant subdermal ONCE Qty: 1 0RF Rx Instructions: as a single dose naproxen [Naprosyn] 500 mg tablet 500 mg PO BID PRNQty: 20 0RF Discharge Instructions Instructions: Depression, Adult ED Additional Instructions: You were seen in the emergency department today for suicidal thoughts and feelings, and were evaluated by both myself and a member of our social work team. A safety plan was made and you will follow-up with your safety plan as described by the social work lecturer. I prescribed you with a medication called prazosin which you can gradually increase at nighttime to help with sleep and nightmares. Please follow-up with your outpatient providers and return to the emergency department if you have any concerns. Thank you for allowing us to be part of your care. Stand Alone Forms: Work Release HPI General Mode of arrival: ambulatory . Date/Time Provider Initiated Documentation: 12/09/23 16:30 . Limitations to Documentation: no limitations . Information obtained by: patient and old records reviewed . HPI Narrative: MDM: In brief, this is a 28-year-old female patient with a history of depression and alcohol use disorder who is presenting for evaluation of self-harm, suicidal thoughts. Differential includes but is not limited to primary psychiatric disturbance, substance use disorder, acute intoxication, withdrawal syndrome. Metabolic and electrolyte derangements were considered, kidney injury, liver dysfunction, urinary tract infection, hypothyroidism. I reviewed the patient's lacerations, and she does not require any suture or wound care at this time. She is reassuringly voluntary and desiring of help, she is calm and does not require any chemical or physical restraint. Per protocol we will obtain laboratory studies to include CBC, CMP, TSH, serum tox screen, urinalysis and urine tox screen. ED Course: Laboratory studies were evaluated by myself, most notable for a positive THC and a new transaminitis. Ethanol level is slightly elevated at 72. Otherwise no leukocytosis, anemia, thrombocytopenia, electrolyte abnormalities or evidence of kidney injury. The patient was evaluated by [facility], and they performed safety planning. The patient understands that if she does not follow through with the safety plan she will require inpatient hospitalization. She has been provided with a prescription for prazosin for her nightmares, and understands how to take this medication safely. The patient does not meet criteria for involuntary hold nor inpatient placement, has adequate outpatient resources, and at this time, the patient has had a full medical evaluation and is safe for discharge to home. They are hemodynamically stable, ambulatory, and tolerating PO. They are understanding of the follow-up plan and return precautions. They left our facility without incident. Katerin Cobb MD HPI: This is a 28-year-old female patient with past medical history significant for depression and alcohol use disorder presenting for evaluation of mental health issue. The patient reports that she had a very vivid nightmare last night, did not care to go into details of the nightmare but states that since that time she has had increasing suicidal thoughts and wishes that she just was not here. She reports that she cut her right thigh and left forearm, states that she did so not with the intention to try to kill herself. She reports that she has had suicidal attempts in the past by overdose but has not made any attempt to harm herself today. She reports that she was recently tapered off of her mirtazapine in the outpatient environment due to inefficacy, and states that she has been trying to get in to the [facility] program but has not felt the self-motivation to make this happen. The patient reports that she is a daily drinker, states that she has drank less today than is typical for her, has never undergone alcohol withdrawals. She has never had hallucinations or seizure. The patient also uses THC and nicotine. She denies hallucinations, homicidal ideation, states that she resides alone and does not feel that she has a strong support system for her mental health. Exam: Gen: Awake and alert, tearful HEENT: Non-icteric sclera, PERRL Neck: Supple Lungs: No apparent respiratory distress, normal respiratory effort. CV: Appears well perfused, strong and symmetrical distal pulses Abdomen: Non-distended MSK: Moves 4 extremities without apparent limitation in ROM Skin: Visualized skin without rashes, cyanosis. The patient has numerous superficial lacerations to the flexor surface of the right forearm, hemostatic, as well as to the lateral aspect of the right thigh. Neuro: Normal Gait, no obvious focal deficits or facial asymmetry. Speaks in full, clear sentences. Psych: Tearful, with suicidal ideation but reporting no intent or plan. Denies homicidal ideation, hallucinations. Linear thought process and preserved insight. Related Data Home Medications ?Medication ?Instructions ?Recorded ?Confirmed naproxen 500 mg tablet (Naprosyn) 500 mg PO BID PRN #20 tabs 10/29/21 12/09/23 etonogestrel 68 mg subdermal 1 implant subdermal ONCE #1 ea 07/24/23 12/09/23 implant (Nexplanon) prazosin 1 mg capsule 1 mg PO QHS #30 caps 12/09/23 Previous Rx's ?Medication ?Instructions ?Recorded naproxen 500 mg tablet (Naprosyn) 500 mg PO BID PRN #20 tabs 10/29/21 etonogestrel 68 mg subdermal 1 implant subdermal ONCE #1 ea 07/24/23 implant (Nexplanon) prazosin 1 mg capsule 1 mg PO QHS #30 caps 12/09/23 Allergies Allergy/AdvReac Type Severity Reaction Status Date / Time dogs Allergy Unknown Hives Uncoded 12/09/23 16:33 General Stated Complaint: PsychEval JAYSON: 2 Course Vital Signs Vital signs: Vital Signs Temperature 36.3 C L 12/09/23 16:28 Pulse 123 H 12/09/23 16:28 Respiratory Rate 16 12/09/23 16:28 Blood Pressure 115/77 12/09/23 16:28 Pulse Oximetry 96 12/09/23 16:28 Temperature 36.3 C L 12/09/23 16:28 Temperature Source Skin 12/09/23 16:28 Pulse 123 H 12/09/23 16:28 Respiratory Rate 16 12/09/23 16:28 Respiratory Effort Normal, Non-Labored 12/09/23 17:35 Blood Pressure 115/77 12/09/23 16:28 Blood Pressure Position Sitting 12/09/23 16:28 Pulse Oximetry 96 12/09/23 16:28 Oxygen Delivery Method Room Air 12/09/23 16:28 Oxygen Flow Rate 0 12/09/23 16:28 Pain Level 0 12/09/23 16:28 Lab/Test Results Lab/Test Results: Laboratory Tests Range/Units 12/09/23 16:30 Urine Color (Yellow) Yellow Urine Clarity (Clear) Clear Urine pH (5-8) 6.0 Ur Specific [place] (1.005-1.025) 1.010 Urine Protein (Neg-Trace) mg/dL Negative Urine Ketones (Negative) mg/dL Trace H Urine Blood (Negative) Small H Urine Nitrite (Negative) Negative Urine Bilirubin (Negative) Negative Urine Urobilinogen (Up to 0.2) mg/dL 0.2 Ur Leukocyte Esterase (Negative) Negative Urine RBC (0-2) HPF 0-2 Urine WBC (0-5) HPF 0-2 Ur Epithelial Cells (Negative) HPF Rare Urine Crystals (Negative) HPF Negative Urine Bacteria (Negative) HPF Rare Urine Casts (Negative) LPF Negative Urine Mucus (Negative) Negative Ur Culture Indicated? No Urine Glucose (Negative) mg/dL Negative Urine Opiates Screen (Negative) Negative Urine Methadone Screen (Negative) Negative Ur Barbiturates Screen (Negative) Negative Ur Tricyclics Screen (Negative) Negative Ur Amphetamines Screen (Negative) Negative U Benzodiazepines Scrn (Negative) Negative Urine Cocaine Screen (Negative) Negative Ur THC Screen (Negative) Positive A POC- Test(urine) Negative Medical Decision Making Quality:SDOH Health Related Social Needs: No Data to Display PFSH All Active Problems (Updated 12/09/23 @ 21:08 by Katerin Cobb MD) Nightmare (Acute) Transaminitis (Acute) Suicidal ideation (Acute) Lumbar strain (Acute) Back pain (Acute) Bartholin cyst (Acute) Nexplanon in place (Acute) 07/10/2020 Encounter for removal and reinsertion of Nexplanon (Acute) 07/2023. Removal L arm. Insertion R arm Routine screening for STI (sexually transmitted infection) (Acute) Medical History (Updated 12/09/23 @ 21:08 by Katerin Cobb MD) Tobacco use Depression Contraceptive management 05/01/14 Nexplanon device Surgical History mouth surgery (~2012) pt did not specify nature of surgery. Family History Mother Mental disorder Father Mental disorder Sister Mental disorder Social History Smoking/Tobacco Use Status: Current every day Tobacco Type: cigarettes Smoking risk assessment performed?: Yes Alcohol Intake: current Alcohol Intake frequency: 3 or more drinks per day Alcohol type: hard liquor Drug use: Daily Substance use type: marijuana Do you feel safe at home: Yes Do you feel safe in your relationship?: Yes PAWSS Have you Been Recently Intoxicated or Drunk Within the Last 30 days?: Yes Have you Ever Experienced Previous Episodes of Alcohol Withdrawal?: No Have you ever Experienced Withdrawal Seizures?: No Have you ever Experienced Delirium Tremens(DT)s?: No Have you ever undergone Alcohol Rehabilitation Treatment (i.e, inpt ot outpatient treatment programs)?: No Have you ever Experienced Blackouts?: Unable to Obtain Have you ever Combined Alcohol with other Downers within the last 90 days?: Samira ble to Obtain Have you ever Combined Alcohol with any other Substance of Abuse during the last 90 days?: Unable to Obtain Positive Blood Alcohol level on Presentation? [PCS.BAL]: Yes Evidence of Increased Autonomic Activity (i.e. HR>120, tremor, sweating, agitation, nausea)?: No Result: 2
[2023-12-09 18:12] LABS: ALT 141 U/L (14-59); AST 99 U/L (15-37); Albumin 3.6 g/dL (3.4-5.0); Alkaline Phosphatase 95 U/L (46-116); Anion Gap 12.6 mmol/L (3-11); BUN 4 mg/dL (7-18); Bilirubin, Total 0.55 mg/dL (0.2-1.0); CO2 22.4 mmol/L (21.0-32.0); CREATININE 0.6 mg/dL (0.55-1.02); Calcium 9.4 mg/dL (8.5-10.1); Chloride 103 mmol/L (98-107); ETHANOL BLOOD 74.3 mg/dL (<10); Estimated GFR 126.09 (mL/min/1.73m2); Glucose 104 mg/dL (74-106); Potassium 3.5 mmol/L (3.5-5.1); Sodium 138 mmol/L (136-145); Total Protein 7.5 g/dL (6.4-8.2)
[2023-12-09 18:15] LABS: Salicylate < 2.8 mg/dL (<2.8)
[2023-12-09 18:17] LABS: Acetaminophen 2 ug/mL (10-30)
[2023-12-09] MEDS: Ibuprofen 600 MG TAB PO (21:41)
== END 2023-12-09 21:39 | disposition home or self-care (01) ==
PROVIDERS: Emergency Provider Emergency Medicine
DX: R45.851 Suicidal ideations (principal); R74.01 Elevation of levels of liver transaminase levels; F51.5 Nightmare disorder; F32.A Depression, unspecified; S71.111A Laceration without foreign body, right thigh, initial encounter; S51.812A Laceration without foreign body of left forearm, initial encounter; F10.10 Alcohol abuse, uncomplicated; F17.210 Nicotine dependence, cigarettes, uncomplicated; Z23 Encounter for immunization; X78.8XXA Intentional self-harm by other sharp object, initial encounter
CPT/HCPCS: 36415; 80053; 80307; 81025; 90471; 90715; 99285; 80320; 80329; 81003; 81015; 84443; 85025

== ENCOUNTER 2024-06-07 21:37 | Outpatient (REF) | payer SELFPAY ==
[2024-06-08 11:44] LABS: HIV-1/2 Ag & Ab Screen Negative (Negative)
[2024-06-08 12:00] LABS: Hepatitis C Ab w Rflx HCV PCR Negative (Negative)
[2024-06-08 13:26] LABS: Chlamydia Result Negative (Negative); GC Result Negative (Negative)
== END 2024-06-07 21:38 | disposition home or self-care (01) ==
LOC: NCHCN 21:37
PROVIDERS: Visit Provider Nurse Practitioner Family
DX: Z11.3 Encounter for screening for infections with a predominantly sexual mode of transmission (principal)
CPT/HCPCS: 86803; 87389; 87491; 87591